=== PATIENT | female | born 1970 | race Caucasian/White ===

== ENCOUNTER → 2017-12-14 14:19 | Outpatient (CLI) | payer OTHER, SELFPAY ==
[2017-12-14 15:55] LABS: Free T3 2.1 pg/mL (2.18-3.98); T4 Free Direct 0.92 ng/dL (0.76-1.46); Thyroid Stim Hormone (TSH) 2.39 uIU/mL (0.358-3.74)
[2017-12-14 16:03] LABS: Homocysteine 8.5 umol/L (3.2-10.7)
[2017-12-23 20:08] LABS: Protein C Antigen 97 % (60-150); Protein C, Functional 114 % (73-180)
[2017-12-24 11:36] LABS: Anti-Cardiolipin Ab, IgG, Qn < 9 GPL U/mL (0-14); Anti-Cardiolipin Ab, IgM, Qn 10 MPL U/mL (0-12); Protein S, Free 132 % (57-157); Protein S, Funtional 94 % (63-140); Protein S, Total 75 % (60-150)
[2017-12-24 11:37] LABS: Anti-Cardiolipin Ab, IgA, Qn < 9 APL U/mL (0-11); Anti-Thrombin 3 AG, Immunol 101 % (72-124); Antithrombin 3 Function 111 % (75-135); Beta-2-Glycoprotein I IgA <9 (0-25); Beta-2-Glycoprotein I IgG <9 (0-20); Beta-2-Glycoprotein I IgM <9 (0-32)
== END ==
PROVIDERS: Family Provider Internal Medicine; PCP Internal Medicine; Visit Provider Internal Medicine
DX: I26.99 Other pulmonary embolism without acute cor pulmonale (principal); R94.6 Abnormal results of thyroid function studies
CPT/HCPCS: 36415; 81240; 81241; 81291; 83090; 84439; 84443; 84481; 85300; 85301; 85302; 85303; 85305; 85306; 86146; 86147

== ENCOUNTER 2017-12-29 10:47 | Day surgery (SDC) | payer OTHER, SELFPAY ==
[2017-12-24 13:10] LABS: Hematocrit 36.7 % (37-47); Hemoglobin 10.5 g/dl (12.0-15.0); Mean Corp Hgb Conc 28.6 g/gl (32-36); Mean Corpuscular Hgb 22.3 pg (27.0-32.0); Mean Corpuscular Volume 77.9 fL (81-99); Platelet Count 294 K/mm3 (150-450); RBC Distribution Width SD 42.8 fl (35.1-43.9); Red Blood Count 4.71 M/mm3 (4.2-5.4)
[2017-12-24 13:28] LABS: Scan Indicated on CBC? Y/N NO
[2017-12-24 13:35] LABS: Prothrombin Time (Protime)PT. 13.3 SECONDS (11.7-14.9)
[2017-12-29] VITALS (10 sets, daily range): BP systolic 91–127; BP diastolic 36–72; PULSE 56–88; RESP 14–18; TEMP 36.3–37; O2SAT 93–100; BMI 32.5
--- NOTE | 2017-12-29 12:30 | HYST_PTH ---
PATIENT: KARTHIKEYAN BECKFORD LOC: [facility] – [place] U#:[id number] AGE/SX: 47/F ROOM: RE12/29/[address]: Dr. Pati Chowdhury MD : [id number] BED: DIS: 12/30/2017 SPEC #: [id number] RECD: 12/29/17 15:29 STATUS: AGAPITO JESSICA #: [id number] TAMIE: 12/29/17 12:[address]: Pati Chowdhury DEPT: SURGICAL PATHOLOGY RECD BY: Jeramie Cotto ENTERED: 12/30/17 08:53 SP TYPE: HYSTERECT OTHR DR: Dr. Kaya Pinto, DO Tissues: Uterus, NOS Procedures: Surgery Specimen Level II Surgery Specimen Level V HEADER OPERATION: Hysterectomy, laparoscopic A & P repair, salpingectomy PRE-OP DIAGNOSIS: Cystocele, incomplete uterovaginal prolapse, rectocele, excessive bleeding in premenopausal period TISSUE SUBMITTED: Uterus, cervix, vaginal mucosa and bilateral fallopian tubes MICROSCOPIC DIAGNOSIS Uterus, hysterectomy: Cervix ? nabothian cysts, squamous metaplasia and mild chronic inflammation. Endometrium ? proliferative endometrium. Myometrium ? leiomyomas and adenomyosis. Right and left fallopian tubes ? benign paratubal cyst. Vaginal mucosa, anterior and posterior repair ? minimal chronic inflammation. No evidence of dysplasia. AM:darrick 12/31/17 MICROSCOPIC DESCRIPTION Slides are reviewed. GROSS DESCRIPTION Received in fixative is one container labeled with the patient's name and designated uterus, cervix, vaginal mucosa and bilateral fallopian tubes. The specimen consists of a hysterectomy specimen consisting of uterus with cervix, detached bilateral fallopian tubes and detached pieces of mucosal tissue and a separate Filshie clip which appears intact. The uterus with cervix weighs 151 gm. The endocervical canal measures 3.5 cm in length and endocervical mucosa is verdugo, glistening and unremarkable. The saucer-shaped endometrial cavity measures 5.5 cm in length and 3.5 cm in width. The endometrium is congested without any mass lesion and measures 0.1 cm in thickness. The endometrial cavity is partially distorted due to the presence of submucosal intramural mass. The endometrium measures 0.1 to 0.2 cm in thickness. Sections of the uterine wall reveal a submucosal intramural nodular mass measuring 4.5 cm in greatest dimension. The uterine wall measures 1.5 to 2.5 cm in thickness. A focal, solid, ill-defined is also noted close to serosal surface. The fallopian tubes are not identified as right or left. One of the fallopian tubes measure 5 cm in length and 0.5 cm in diameter. The fimbrial end is identified. A paratubal cyst is also noted measuring 1 cm in greatest dimension. Sections reveal unremarkable cut surfaces. The second fallopian tube measures 4.5 cm in length and 0.5 cm in diameter. The fimbrial end is identified. Also present in the container are two detached pieces of fallopian tube measuring 0.5 and 1 cm in length and 0.5 cm in diameter. These pieces are inked black. Also present in the container are two detached pieces of mucosal tissue measuring in aggregate 5 x 3 x 0.5 cm. No mucosal lesion is identified. S Iron Worker sections are submitted in 12 cassettes as follows: 1 - anterior cervix, 2 - posterior cervix, 3 & 4 - anterior uterine wall, 5 & 6 - posterior uterine wall, 7 & 8 ? submucosal nodular mass, 9 ? solid, ill-defined area in the uterine wall, 10 ? one fallopian tube including the detached proximal piece of one fallopian tube, 11 ? second fallopian tube and also contains the detached piece of proximal fallopian tube inked black, 12 ? mucosal tissue. / JONA:darrick 12/30/17 TC:1 CPT: 85372, 96810
--- NOTE | 2017-12-29 12:30 | PCM.DC.VHY ---
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 Call your doctor if you observe: Fever of 101 or Higher, Inability to have a bowel movement, Using more than one pad per hour, Calf discomfort, Uncontrolled pain Change Dressing in (Days):: 14 Remove Dressing in (days):: 14 Cleanse incision/area with: Soap & Water, Keep Dressing Clean & Dry Additional Instructions: Take Tylenol 500 - 1000 mg by mouth every 8 hr as needed. Add Aleve two tab every 8 hr as needed for pain OxyIR 5-10 mg by mouth every 6 hr as needed for more severe pain. Allergies/Adverse Reactions: Allergies bee venom protein (honey bee) Allergy (Verified 12/23/17 12:02) Anaphylaxis morphine Adverse Reaction (Verified 12/23/17 12:02) Vomiting Medications to take at Discharge Viibryd 20 mg PO DAILY 05/08/16 Epinephrine [Epi Pen] 0.3 mg IM X1 12/23/17 Lorazepam [Ativan] 0.5 mg PO QHS PRN PRN 12/23/17 Rabeprazole Sodium [Aciphex] 20 mg PO DAILY 12/23/17 Docusate Sodium [Colace] 100 mg PO BID #30 cap 12/29/17 Naproxen [Naprosyn] 250 - 500 mg PO TID PRN #30 tab 12/29/17 Oxycodone [Oxyir] 5 - 10 mg PO Q6H PRN PRN 7 Days #28 tablet 12/29/17 The following prescriptions were given: Oxycodone [Oxyir] 5 - 10 mg PO Q6H PRN PRN 7 Days #28 tablet PRN Reason: Mod-Severe Pain (4-08/03) Docusate Sodium [Colace] 100 mg PO BID #30 cap Naproxen [Naprosyn] 250 - 500 mg PO TID PRN #30 tab PRN Reason: Mild-Mod Pain (1-5/10) Primary Care Physician: Kaya Pinto DO [Primary Care Provider] - Please Follow Up With: Pati Chowdhury MD - [phone] When: 2 weeks for postop incision check Proposed Discharge Date: 12/30/17
--- NOTE | 2017-12-29 12:38 | DCINST_ITS ---
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 Call your doctor if you observe: Fever of 101 or Higher, Inability to have a bowel movement, Using more than one pad per hour, Calf discomfort, Uncontrolled pain Change Dressing in (Days):: 14 Remove Dressing in (days):: 14 Cleanse incision/area with: Soap & Water, Keep Dressing Clean & Dry Additional Instructions: Take Tylenol 500 - 1000 mg by mouth every 8 hr as needed. Add Aleve two tab every 8 hr as needed for pain OxyIR 5-10 mg by mouth every 6 hr as needed for more severe pain. Allergies/Adverse Reactions: Allergies bee venom protein (honey bee) Allergy (Verified 12/23/17 12:02) Anaphylaxis morphine Adverse Reaction (Verified 12/23/17 12:02) Vomiting Medications to take at Discharge Viibryd 20 mg PO DAILY 05/08/16 Epinephrine [Epi Pen] 0.3 mg IM X1 12/23/17 Lorazepam [Ativan] 0.5 mg PO QHS PRN PRN 12/23/17 Rabeprazole Sodium [Aciphex] 20 mg PO DAILY 12/23/17 Docusate Sodium [Colace] 100 mg PO BID #30 cap 12/29/17 Naproxen [Naprosyn] 250 - 500 mg PO TID PRN #30 tab 12/29/17 Oxycodone [Oxyir] 5 - 10 mg PO Q6H PRN PRN 7 Days #28 tablet 12/29/17 The following prescriptions were given: Oxycodone [Oxyir] 5 - 10 mg PO Q6H PRN PRN 7 Days #28 tablet PRN Reason: Mod-Severe Pain (4-08/03) Docusate Sodium [Colace] 100 mg PO BID #30 cap Naproxen [Naprosyn] 250 - 500 mg PO TID PRN #30 tab PRN Reason: Mild-Mod Pain (1-5/10) Primary Care Physician: Kaya Pinto DO [Primary Care Provider] - Please Follow Up With: Pati Chowdhury MD - [phone] When: 2 weeks for postop incision check Proposed Discharge Date: 12/30/17
[2017-12-29] MEDS: Bupiv/Epi 0.5% Mpf 30 ML Vial (13:00)
[2017-12-29] MEDS: Lactated Ringers 1,000 ML 125 ML IV (16:11)
--- NOTE | 2017-12-29 18:31 | PCM.OP.BLANK ---
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 Bilateral salpingectomy Anterior and posterior repair Enterocele sac ligation Preoperative diagnosis: Symptomatic , incomplete uterovaginal prolapse Grade I uterine prolapse Moderate rectocele Mild cystocele Postop diagnosis: Symptomatic , incomplete uterovaginal prolapse Grade I uterine prolapse Moderate rectocele Enterocele Mild cystocele Uterine fibroids. Anesthesia: General Vinod Barajas MD Surgeon: Pati Chowdhury MD Subassembly Supervisor: LYNNETTE Burnette RNFA EBL [id number] cc Complications: none Drains: Rossi draining clear yellow urine Fluids: replacement LR Findings: On exam under anesthesia, the cervix has mild prolapse and is parous appearing. At Laparoscopy: the uterus is mildly enlarged and several serosal fibroids are noted. Prior bilateral partial salpingectomy, Filshie clips. There are no significant adhesions in the pelvis . There are normal appearing fallopian tubes and ovaries bilaterally. PATH: Uterus, bilateral fallopian tubes Strips of vaginal mucosa. Narrative account: After the risks, benefits and alternatives of the procedure were reviewed with the patient , informed consent was obtained. The patient was taken to the Operative room with an IV running . She was positioned in the dorsal supine position on the operating table and given general anesthesia. Once asleep she was positioned to the dorsal lithotomy position with the arms tucked at the sides and prepped and draped in the usual sterile fashion. A Rossi catheter was inserted to drain the bladder and left open to drain in the drape. The weighted speculum was placed into the vagina and a single tooth tenaculum was placed at the cervix. A Dustin cannula was inserted into the cervix and secured into placed with the single - toothed tenaculum. Attention was then turned to the anterior abdominal wall. the bridge operator slip's gloved were changed and skin incisions were created at the infraumbilical and suprapubic skin and at a point approximately nursing home between the suprapubic and infraumbilical skin incisions. Local anesthesia was used to infiltrate the skin where the trocar incision sites were created. A transverse 5 mm infraumbilical skin incision , a transverse 5 mm suprapubic incision and an transverse 5 mm midline incision were created. A Veress needle was inserted in to the peritoneal cavity at the infraumbilical skin incision while maintaining upward traction of the anterior abdominal wall at the umbilicus. There was free drop of saline, free flow of CO2 and low opening pressure noted. Once the intraabdominal pressure had reached approximately 15 mm HG, the Veress needle was removed and a bladeless 5 mm trocar was inserted into the peritoneal cavity. Correct placement was confirmed using the laparoscope. Under direct visualization the other two 5 mm bladeless trocars were inserted into the peritoneal cavity. The fallopian tubes were retracted medially and using a LigaSure device the fallopian tube was divided from the ovary and the mesosalpinx, leaving the fallopian tube free at each side of the uterus other than the attachment to the uterus. The uteroovarian pedicles were then divided using a [place] LigaSure device. The broad ligament was then divided down to the level of the round ligament on both sides. At this point the laparoscopic portion of the case was completed. The trocars were left in place, but the instruments were removed and gas turned off. A sterile drape was used to cover the abdomen. Attention was then turned to the vaginal portion of the case. The Dustin cannula was removed and the single toothed tenaculum repositioned on the cervix. The cervical mucosal was then incised circumferentially using Bovie cautery and a knife. The posterior cul de sac was entered by sharp dissection with Pizano scissors and a weighted speculum was placed into the posterior cul se sac. Dissection then was initiated at the anterior cervix to enter the anterior cul se sac. The uterosacral ligaments were clamped bilaterally with curved Christ clamps and the pedicles divided and suture ligated and tagged for later identification. Next the cardinal ligament was clamped bilaterally and divided and suture ligated. Adequate hemostasis was noted. The anterior cul de sac peritoneum was then entered by sharp dissection and a narrow Ashish retractor was placed into the anterior cul de sac to retract the bladder out of harm's way for the remainder of the case. The uterine arteries were clamped bilaterally , divided and suture ligated. Dissection then continued along each side of the uterus. Each pedicle was secured with a Christ clamp, divided and suture ligated until ultimately the uterine fundus was reached. The superior pedicles on each side were secured with a curved Christ clamp and the uterus and attached fallopian tubes were surgically amputated and set aside. The superior pedicle was then suture ligated, then free tied and tagged for identification. The superior pedicles were dry. There was bleeding noted along the posterior vaginal cuff and along the anterior vaginal cuff . The peritoneum was then closed with a running purse string suture of 1 Vicryl, incorporating the superior pedicles and uterosacral ligament tags. There was bleeding noted at the R uterine angle and this area was oversewn with a figure of eight stitch of 1 Vicryl. Attention was then turned to the anterior repair. Allis clamps were used to grasp the anterior vaginal mucosa and the vaginal mucosa was dissected from from the underlying pubovesical cervical fascia from the vaginal cuff to a point approximately 1-2 cm away from the urethra. Estela plication stitches of 1Vicryl were placed, reducing the small cystocele. The anterior vaginal mucosa was trimmed and the anterior vaginal incision was then repaired with interrupted stitches of 2-0 chromic. The posterior vaginal cuff was then reapproximated with the posterior cul de sac peritoneum in a running locked fashion with 1 Vicryl for hemostasis. The vaginal cuff was then reapproximated with interrupted and fig of eight stitches of 1-0 Vicryl . Excellent hemostasis was noted. Attention was then turned to the posterior repair A triangular piece of tissue was excised at the posterior vagina / perineal body and the posterior vaginal longitudinal incision was then created using Metzenbaum scissors. The linear incision was carried from the posterior introitus to approx 2-3 cm proximal to the vaginal cuff repair. The vaginal epithelium was then dissected from the underlying rectovaginal septum. An enterocele sac was encountered and was reduced with a purse string suture of 1-0 Vicryl. Estela plication stitches of 1-0 Vicryl were then placed reducing the rectocele. The posterior vaginal mucosa was trimmed and the linear incision closed with 2-0 chromic in a running locked fashion. Additional stitches of 1-0 Vicryl were placed for hemostasis along the repair. vaginal packing was then inserted: 1 plain gauze Excellent hemostasis was noted. The Rossi was attached to the Rossi bag and clear yellow urine returned. A second look was performed with the laparoscope: excellent hemostasis was noted at all pedicles and at the vaginal cuff. Sania was sprayed along the cuff and pedicles for additional hemostasis. The pneumoperitoneum was reduced and all instruments and trocars were removed. The skin incisions were closed with 4-0 Monocryl in a subcuticular fashion. Sterile dressings were applied. The patient was returned to dorsal supine position and awakened from general anesthesia. She was then transferred to the recovery room bed in stable condition after tolerating the procedure well. Sponge, lap, needle and instrument counts correct times two. Medications given preop and intraoperatively included: Cefotetan IV was given production staff worker to the operating room , Marcaine with epinephrine was used as a subcutaneous injection at the trocar skin incision sites, and Toradol 30 mg IV x one was given. For a complete listing of medications given preop and intraoperatively, please see the anesthesia record.
[2017-12-29] MEDS: Ondansetron 4 MG/2 ML Vial IV (21:29)
[2017-12-29] MEDS: Ketorolac 30 MG/ML Syringe IV (21:39)
[2017-12-30] MEDS: Lactated Ringers 1,000 ML 125 ML IV (01:39)
[2017-12-30] MEDS: Ketorolac 30 MG/ML Syringe IV ×2 (01:41→10:23)
[2017-12-30 02:30] VITALS: BP 99/56; PULSE 97; RESP 16; TEMP 36.7; O2SAT 94
[2017-12-30 06:08] LABS: Hematocrit 26.9 % (37-47); Hemoglobin 7.8 g/dl (12.0-15.0); Mean Corpuscular Hgb 22.5 pg (27.0-32.0); Mean Corpuscular Volume 77.7 fL (81-99); Mean Platelet Vol. 10.6 fl (6.2-12.0); Platelet Count 198 K/mm3 (150-450); RBC Distribution Width CV 15.3 % (11.6-14.6); RBC Distribution Width SD 43.3 fl (35.1-43.9); Red Blood Count 3.46 M/mm3 (4.2-5.4); White Blood Count 12.8 K/mm3 (4.4-11.0)
[2017-12-30] MEDS: Acetaminophen 500 MG Tablet PO (06:24)
[2017-12-30 06:25] LABS: Scan Indicated on CBC? Y/N NO
[2017-12-30 07:30] VITALS: O2SAT 95
--- NOTE | 2017-12-30 09:04 | PCM.PROGNOTE ---
Subjective: POD#1 LAVH, bilateral salpingectomy. A and P repair. Enterocele ligation. Doing OK. Some nausea overnight. Hernnadez out but not up to void yet. Using K pad to help with cramping. No concerns voiced. States she is a very rare, occasional, casual smoker (smokes with coffee, friends) and last cigarette months ago but does relate she has had problems with her lungs...many infections. Objective: Lying in bed, NAD - Physical Exam General: Alert, Oriented x3, Cooperative, No apparent distress HEENT: Atraumatic Neck: Supple Abdomen: Soft, Non Tender Skin: Incision - L/S incisions CDI. Vaginal packing removed, old dk blood . Minimal bld on peripad Neurological: Cranial nerves II-XII grossly intact Psych/Mental Status: Normal Affect Vital Signs Temp Pulse Resp BP Pulse Ox 98.1 F 97 16 99/56 L 95 /06/11 02:30 /06/11 02:30 12/30/17 02:30 12/30/17 02:30 12/30/17 07:30 Oxygen Flow Rate (L/min) 2 Oxygen Delivery Method Room Air Weight: 88.7 kg Body Mass Index (BMI) 32.5 Intake and Output for Last 24 Hours 03/06/18 //18 /06/11 23:59 23:59 23:59 Intake Total 2112 / 2112 Output Total 40 / 40 460 / 460 Balance 2072 / 2072 1513 / 1513 Laboratory Tests Past 24 Hrs //18 05:42 WBC 12.8 H RBC 3.46 L Hgb 7.8 L Hct 26.9 L MCV 77.7 L MCH 22.5 L MCHC 29.0 L RDW 15.3 H RDW Differential 43.3 Plt Count 198 MPV 10.6 Assessment/Plan POD#1 LAVH Bilateral salpingectomy, A and P repair, Enterocele sac ligation Stable postop. D/C hernandez for voiding trial. Inc diet and acivity as tolerated. May shower. Pakcing out, watch bleeding Iron deficiency anemia prior to surgery, and with superimposted acute blood loss anemia after surgery -- repeat CBC at 1100 -- ferrous sulfate bid Mild leukocytosis -- likely reactive -- repeat CBC 1100 D/C home later today if clinically stable. Continue iron for one mo after surgery planned. RTO in 2 wk for postop incision check.
[2017-12-30] MEDS: Docusate Sodium 100 MG Capsule PO (10:30)
[2017-12-30] MEDS: Pantoprazole Sodium 20 MG Tablet PO (10:32)
[2017-12-30] MEDS: VILAZODONE HYDROCHLORIDE 20 MG TABLET PO (10:32)
[2017-12-30] MEDS: Ferrous Gluconate 325 MG Tablet PO (10:32)
[2017-12-30 10:42] VITALS: BP 101/50; PULSE 86; RESP 20; TEMP 36.9; O2SAT 98
[2017-12-30 10:47] LABS: Hematocrit 30.5 % (37-47); Hemoglobin 8.8 g/dl (12.0-15.0); Mean Corp Hgb Conc 28.9 g/gl (32-36); Mean Corpuscular Hgb 22.4 pg (27.0-32.0); Mean Corpuscular Volume 77.8 fL (81-99); Mean Platelet Vol. 10.1 fl (6.2-12.0); Platelet Count 226 K/mm3 (150-450); RBC Distribution Width CV 15.4 % (11.6-14.6); Red Blood Count 3.92 M/mm3 (4.2-5.4); Scan Indicated on CBC? Y/N NO; White Blood Count 12.7 K/mm3 (4.4-11.0)
[2017-12-30 13:36] VITALS: BP 97/57; PULSE 84; RESP 18; TEMP 36.7; O2SAT 97
== END 2017-12-30 13:55 | disposition home or self-care (01) ==
LOC: SDC 10:48 → AC 10:48 → MS3 14:30
PROVIDERS: Family Provider Internal Medicine; PCP Internal Medicine; Visit Provider Obstetrics & Gynecology
PROC: 0UT90ZZ Resection of Uterus, Open Approach (ICD-10-PCS; CPT 58150; principal; 2017-12-29 12:10)
DX: N81.2 Incomplete uterovaginal prolapse (principal); D25.9 Leiomyoma of uterus, unspecified; N92.4 Excessive bleeding in the premenopausal period; N88.8 Other specified noninflammatory disorders of cervix uteri; N72 Inflammatory disease of cervix uteri; N87.9 Dysplasia of cervix uteri, unspecified; N80.0 Endometriosis of uterus; N83.8 Other noninflammatory disorders of ovary, fallopian tube and broad ligament; N76.1 Subacute and chronic vaginitis; D50.9 Iron deficiency anemia, unspecified; D62 Acute posthemorrhagic anemia; D72.829 Elevated white blood cell count, unspecified; K21.9 Gastro-esophageal reflux disease without esophagitis; F32.9 Major depressive disorder, single episode, unspecified; F41.9 Anxiety disorder, unspecified; E03.9 Hypothyroidism, unspecified; F17.200 Nicotine dependence, unspecified, uncomplicated; Z86.711 Personal history of pulmonary embolism; Z98.51 Tubal ligation status
CPT/HCPCS: 58552; 36415; 85027; 85610; 85730; 86850; 86900; 88302; 88307; J3010; J7040; J7120; J2405

== ENCOUNTER → 2018-01-14 14:01 | Outpatient (CLI) | payer OTHER, SELFPAY ==
[2018-01-14 17:16] LABS: Mean Corp Hgb Conc 28.6 g/gl (32-36); Mean Corpuscular Hgb 22.4 pg (27.0-32.0); Mean Corpuscular Volume 78.5 fL (81-99); Mean Platelet Vol. 10.8 fl (6.2-12.0); Platelet Count 366 K/mm3 (150-450); RBC Distribution Width CV 16.4 % (11.6-14.6); RBC Distribution Width SD 45.8 fl (35.1-43.9); Red Blood Count 4.46 M/mm3 (4.2-5.4); White Blood Count 7.6 K/mm3 (4.4-11.0)
[2018-01-14 17:19] LABS: Scan Indicated on CBC? Y/N NO
== END ==
PROVIDERS: Visit Provider Obstetrics & Gynecology
DX: D64.9 Anemia, unspecified (principal)
CPT/HCPCS: 36415; 85027

== ENCOUNTER → 2018-03-22 16:05 | Outpatient (CLI) | payer OTHER, SELFPAY ==
[2018-03-22 17:34] LABS: D-Dimer Quantitative (DVT/PE) 0.94 FEU/ug/m (0.27-0.49)
== END ==
PROVIDERS: Family Provider Internal Medicine; PCP Internal Medicine; Visit Provider Nurse Practitioner Gerontology
DX: R06.02 Shortness of breath (principal)
CPT/HCPCS: 36415; 85379

== ENCOUNTER → 2018-03-23 11:13 | Outpatient (CLI) | payer OTHER, SELFPAY ==
--- NOTE | 2018-03-23 11:18 | CT_ITS ---
STUDY: CTA CHEST REASON FOR EXAM: Female, 47 years old. Elevated d-dimer. RADIATION DOSAGE (If Supplied By Facility): CTDIvol = ( 13.83 ) mGy, DLP = ( 469.00 ) mGycm TECHNIQUE: The examination was performed with the intravenous administration of 100 ml of Isovue 370 contrast material. Post-processing of the angiographic images was performed, with multiplanar reformation. Individualized dose optimization techniques were used for this CT. COMPARISON: CT of the chest, May 08, 2016. FINDINGS: Normal enhancement of the main pulmonary artery and right and left pulmonary arteries. Normal enhancement of the bilateral peripheral pulmonary arteries. There is no demonstrated pulmonary embolism. Normal thoracic aorta and visualized great vessels. There is no demonstrated aortic dissection. Normal heart and pericardium. Normal mediastinum. Normal hilar regions. Normal visualized trachea and bronchi. The lungs are well expanded. Normal pulmonary parenchyma. Normal pleura. Normal chest wall structures. Normal osseous structures. Question small type I hiatal hernia. The remainder of the visualized abdomen is unremarkable. CT/CTA Chest W/WO Contrast IMPRESSION: Normal CTA chest examination, without a demonstrated pulmonary embolism or arterial dissection. Electronically Signed: Brent Infante DO at 12:15 EDT Tel [phone], Service support ,
== END ==
PROVIDERS: Family Provider Internal Medicine; PCP Internal Medicine; Visit Provider Internal Medicine
DX: R79.89 Other specified abnormal findings of blood chemistry (principal)
CPT/HCPCS: 71275; Q9967

== ENCOUNTER → 2018-08-06 08:33 | Outpatient (CLI) | payer OTHER, SELFPAY ==
[2018-08-06 09:45] LABS: Cholesterol 199 mg/dL (200); Glucose 97 mg/dL (74-106); High Density Lipoprotein 60 mg/dL; Triglycerides 97 mg/dL; Very Low Density Lipoprotein 19 mg/dL (5-40)
== END ==
PROVIDERS: Family Provider Internal Medicine; PCP Internal Medicine; Referring Provider Internal Medicine; Visit Provider Internal Medicine
DX: Z13.220 Encounter for screening for lipoid disorders (principal); R53.83 Other fatigue
CPT/HCPCS: 36415; 80061; 82947

== ENCOUNTER → 2018-11-18 12:44 | Outpatient (CLI) | payer OTHER, SELFPAY ==
--- NOTE | 2018-11-18 12:55 | MRI_ITS ---
STUDY: MRI LEFT SHOULDER REASON FOR EXAM: Pain for 10 months, left shoulder impingement. TECHNIQUE: Standardized fat and water weighted pulse sequences were obtained in all 3 orthogonal planes. COMPARISON: None. FINDINGS: There is mild supraspinatus tendinosis and a very small low-grade partial-thickness tear of the articular surface of the supraspinatus tendon (T2 coronal image 12) measuring 0.2 cm in length. Normal infraspinatus tendon. Normal subscapularis tendon. Normal teres minor tendon. Normal supraspinatus muscle. Normal infraspinatus muscle. Normal subscapularis muscle. Normal teres minor muscle. Normal glenohumeral articulation. There is mild cystic change of the posterior aspect of the greater tuberosity. There is a possible small SLAP lesion (T2 coronal images 9-11). Normal intracapsular long biceps tendon. Normal capsulo- ligamentous complex. Normal acromioclavicular articulation. There is a Type II morphology (curved), with a neutral orientation. There is no subacromial-subdeltoid bursal fluid. Normal visualized coracohumeral and coracoacromial ligaments. Normal deltoid muscle. Normal trapezius muscle. MRI/Upper Ext Joint Only(Routine) IMPRESSION: Very small low-grade partial-thickness tear and mild tendinosis of the supraspinatus tendon. Possible small SLAP lesion. Electronically Signed: Rangel Cid MD at 13:51 EST Tel , Service support ,
== END ==
PROVIDERS: Family Provider Internal Medicine; PCP Internal Medicine; Referring Provider Physician Assistant; Visit Provider Physician Assistant
DX: M75.42 Impingement syndrome of left shoulder (principal)
CPT/HCPCS: 73221

== ENCOUNTER → 2019-06-02 11:15 | Outpatient (CLI) | payer OTHER, SELFPAY ==
[2019-06-03 16:07] LABS: CHOLESTEROL TOTAL 228 mg/dL (100-199); HDL-C 62 mg/dL (>39); HDL-P TOTAL 38.9 umol/L (>=30.5); SMALL LDL-P 588 nmol/L (<=527); TRIGLYCERIDES 84 mg/dL (0-149)
[2019-06-04 07:43] LABS: INSULIN RESISTANCE SCORE 37 (<=45); LDL SIZE 21.2 nm (>20.5); LDL-C 149 mg/dL (0-99); LDL-P 1699 nmol/L (<1000)
== END ==
PROVIDERS: Family Provider Internal Medicine; PCP Internal Medicine; Referring Provider Internal Medicine; Visit Provider Internal Medicine
DX: Z13.220 Encounter for screening for lipoid disorders (principal); R11.0 Nausea
CPT/HCPCS: 36415; 80061; 83704

== ENCOUNTER 2019-06-14 11:00 | Outpatient (RCR) | payer OTHER, SELFPAY ==
--- NOTE | 2019-04-11 15:33 | HP.PTEVAL ---
Patient's Visit Information KARTHIKEYAN BECKFORD is a 48 year old F referred to Physical Therapy by Shay Cross MD with a diagnosis of L shoulder impingement s/p bi tenotomy and clean out artrosopic. Date of Evaluation: 04/11/19 Physical Therapist: Vinod Laird, DPT, OCS, CSCS - Visit Plan Frequency: 2x /Week Duration: 3 Months Plan: 1-2x/week for 6-8 weeks. Start phase 1 adn progress slowly to phase 2 ROM exercises and activtiy modifications to keep pain low. Ice as needed. Isometrics as able. Phase 3 after visits doctor mid April if doing well. - Subjective Findings: Surgery on L shoulder biceps tenotomy and clean out. Cleaned out March 30. Feels pretty good. In sling and out for short periods during the day. Acheing lately 4/10, comfortable at rest. Not sure what the orginal injury was but it hurt for 1.5 years of pain and stiffness. Sleep is OK but avoids L side. Precautions are in sling and out for short periods. No lifting heavier than a cup. Back in one month. 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 Off for 12 weeks. Dress , bathe and shower are OK just slow. Avoids cooking adn cleaning at this point. Hobbies include travellign adn reading and walking. Can still read and walks a little bit. - Pain L shoulder Pain Intensity (Out of 10): 0 Pain Intensity Range: 0, 6 - Objective L arm in sling and donned and doffed I. c/s AROM WNL and I. wrist and elbow aROM B WNL. Scapular ROM is fulla nd painfree. R shoulder aROM WNL elevation 160 and 80 ext rot adn L4 IR. L shoulder 125 flexion, 40 ext rotation adn 30 IR at 90 abd. Incisions have healed well and no drainage. Minor scar tissue under 3 arthroscopic. - Goals Goal 1:: Full aROM without pain Goal Time Frame: 6-8 Weeks Goal 2:: Patient able to sleep on L side without interruption Goal Time Frame: 6-8 Weeks Goal 3:: Pt I approp HEp to minimize future problems Goal Time Frame: 6-8 Weeks Goal 4:: Pt ready to return to work without limitations Goal Time Frame: 8-12 Weeks - Rehabilitation Potential Physical Therapy Diagnosis: L shoulde rimpingement s/p suregery. Rehabilitation Potential: Good - Anticipated Interventions Patient/Client Instruction: Educate patient on: Condition, Plan of Care For the Purpose of:: To decrease pain, To increase ROM, To improve muscle performance and motor function, To improve ability of physical actions for home/community/work/leisure Therapeutic Exercise to Include: Strength training, Flexibilty training, Passive ROM, Active ROM, Scapular Strength/Stabilization For the Purpose of:: To decrease pain, To increase ROM, To improve nutrient delivery to tissue, To improve muscle performance and motor function, To improve ability of physical actions for home/community/work/leisure Manual Therapy Techniques to Include: Passive ROM For the Purpose of:: To increase ROM Cryotherapy (ice pack, ice massage): Yes For the Purpose of:: To decrease swelling/inflammation Thank you for the opportunity to evaluate your patient. For Medicare and Medicare HMO plans, please review the plan of care and approve it. It will need to be FAXED BACK to us at [phone] for Medicare purposes. For Medicare only, by signing this I certify the plan of care. Please let me know if there are questions or concerns regarding this plan of care. Physician Signature: Date:
--- NOTE | 2019-05-11 10:51 | HP.PTREVAL_ITS ---
Shay Cross MD, It has been my pleasure to treat KARTHIKEYAN BECKFORD over the last 9 visits for L shoulder impingement s/p bi tenotomy and clean out artrosopic. Please see the progress note below for an update on the physical therapy plan of care! Subjective: Doctor said everything looked good. Pain 1-2/10 achiness 80% of time. Sleep is OK. HEP: pendulum and elbow ROM, stick supine flexiona nd er. Backk to doctor in 4 weeks. No precautions other than care with elbow flexion. Objective/Function: 140 flexion. 110 Abduction. 38 ext rotation(82 R). 50 degrees ext rotation and 150 flexion after stretches. Plan Plan: weekly to progress HEP to isometrics adn triceps and biceps Goals Goal 1:: Full aROM without pain Goal Time Frame: 6-8 Weeks Goal Progress: Progressing Goal 2:: Patient able to sleep on L side without interruption Goal Time Frame: 6-8 Weeks Goal Progress: Progressing Goal 3:: Pt I approp HEp to minimize future problems Goal Time Frame: 6-8 Weeks Goal Progress: Progressing Goal 4:: Pt ready to return to work without limitations Goal Time Frame: 8-12 Weeks Anticipated Interventions Patient/Client Instruction: Educate patient on: Condition, Plan of Care For the Purpose of:: To decrease pain, To increase ROM, To improve muscle performance and motor function, To improve ability of physical actions for home/community/work/leisure Therapeutic Exercise to Include: Strength training, Flexibilty training, Passive ROM, Active ROM, Scapular Strength/Stabilization For the Purpose of:: To decrease pain, To increase ROM, To improve nutrient delivery to tissue, To improve muscle performance and motor function, To improve ability of physical actions for home/community/work/leisure Manual Therapy Techniques to Include: Passive ROM For the Purpose of:: To increase ROM Cryotherapy (ice pack, ice massage): Yes For the Purpose of:: To decrease swelling/inflammation Please do not hesitate to contact me at [phone] by phone or Fax: if you have questions or concerns regarding this new plan of care! Sincerely, Vinod Laird, DPT, OCS, CSCS
--- NOTE | 2019-07-13 12:27 | HP.PTDCNRP_ITS ---
HP - Discharge Summary (1) - Patient Information KARTHIKEYAN BECKFORD was seen in my office for initial evaluation on 04/11/19. The following Plan of Care was established for this patient: Initial Frequency: 2x /Week Initial Duration: 3 Months - Anticipated Interventions Patient/Client Instruction: Educate patient on: Condition, Plan of Care For the Purpose of:: To decrease pain, To increase ROM, To improve muscle per formance and motor function, To improve ability of physical actions for home/community/work/leisure Therapeutic Exercise to Include: Strength training, Flexibilty training, Passive ROM, Active ROM, Scapular Strength/Stabilization For the Purpose of:: To decrease pain, To increase ROM, To improve nutrient delivery to tissue, To improve muscle performance and motor function, To improve ability of physical actions for home/community/work/leisure Manual Therapy Techniques to Include: Passive ROM For the Purpose of:: To increase ROM Cryotherapy (ice pack, ice massage): Yes For the Purpose of:: To decrease swelling/inflammation This patient was last seen in our office 06/14/19. Pertinent comments regarding their Physical therapy will appear below: Pt seen for 12 visits of POC. Doing very well. She was to f/u in mid june but mayte cancelled stating she is doing well and does not need to return. At this point I will be discontinuing this patient from physical therapy. I would be happy to see this patient again in the future if found appropriate by the physician. Thank you! Vinod Laird, DPT, OCS, CSCS
== END 2019-06-14 19:00 | disposition home or self-care (01) ==
LOC: PT 11:00
PROVIDERS: Family Provider Internal Medicine; PCP Internal Medicine; Referring Provider Orthopaedic Surgery; Visit Provider Orthopaedic Surgery
DX: M75.42 Impingement syndrome of left shoulder (principal)
CPT/HCPCS: 97110; 97140; 97161; 97530

== ENCOUNTER 2019-10-02 12:36 | Emergency (ER) | payer OTHER, SELFPAY ==
[2019-10-02 12:37] VITALS: BP 161/101; PULSE 86; RESP 15; TEMP 36.6; O2SAT 97; BMI 32.4
--- NOTE | 2019-10-02 13:25 | ED.VISSUMM ---
- ER Visit Summary Date of Service: 10/02/19 Chief Complaint: Back pain. 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 She denies any weakness or numbness to her lower extremities. She is never had back surgery. She is never had an MRI. She denies any bowel or bladder incontinence. No fever. She is on no blood thinners. He states she feels actually pretty well when she is sitting when she goes to move or stand up is when she notices the pain. Physical Examination: Middle-aged female no acute distress vital signs are stable afebrile. HEENT exam unremarkable. Neck nontender. Lungs clear to auscultation bilaterally. Heart regular rhythm no murmur. Abdomen is soft and nontender. Normal bowel sounds no peritoneal signs. Patient is moving all 4 extremities. There are neurovascular intact. Dorsi and plantar flexion are intact. No cauda equina. No saddle anesthesia. Back is tender over the lumbar spine. There is no ecchymosis or bruising. No paraspinal soft tissue tenderness. Neurologically her exam is normal. She has no focal motor or sensory deficits. She is a negative straight leg raise bilaterally. Test Results: None Emergency Department Course and Treatment: Patient does not need any imaging today. She has normal motor strength and sensation in her lower extremities. She had no fall or significant trauma she does not need any plain x-rays nor MRI. She knows that this continues she may need an MRI. Treatment Plan: Motrin for pain 800 3 times daily. Ice to the area. Follow-up if not improving. Disposition: Discharge Impression: Low back pain and strain Worker's Comp. injury This note was generated with [employer] dictation software. It may contain incorrect words, spelling, and punctuation that were not noted in review of the chart prior to signing ED Disposition - Plan for ED Patient: Referrals: Kaya Pinto DO [Primary Care Provider] -
--- NOTE | 2019-10-02 13:27 | ED.DEP ---
ED Disposition - Plan for ED Patient: Disposition: Home or Assisted Living Instructions: Back Sprain/Strain Prescriptions: Ibuprofen [Motrin] 800 mg PO Q8H PRN PRN #20 tab PRN Reason: Pain Or Fever Prescription Printed Ibuprofen [Motrin] 800 mg PO TID #20 tab Prescription Printed Referrals: Kaya Pinto DO [Primary Care Provider] - 1 Week if not improving Additional Instructions: Trend for pain and inflammation up to 3 times a day with food on the stomach. Not improving in a week follow-up with primary care physician. You may need an MRI if this is not getting better. This could be an underlying disc other etiology to your lower back but at this time you have no numbness or weakness to your lower extremities.
[2019-10-02 13:53] VITALS: PULSE 82; RESP 14; O2SAT 98
== END 2019-10-02 13:53 | disposition home or self-care (01) ==
PROVIDERS: Emergency Provider Emergency Medicine; Family Provider Internal Medicine; PCP Internal Medicine
DX: S39.012A Strain of muscle, fascia and tendon of lower back, initial encounter (principal); X58.XXXA Exposure to other specified factors, initial encounter; Y93.89 Activity, other specified; Y92.009 Unspecified place in unspecified non-institutional (private) residence as the place of occurrence of the external cause; Y99.0 Civilian activity done for income or pay
CPT/HCPCS: 99282

== ENCOUNTER → 2019-10-24 06:38 | Outpatient (CLI) | payer OTHER, SELFPAY ==
[2019-10-02 12:37] VITALS: BMI 32.4
--- NOTE | 2019-10-24 06:44 | MRI_ITS ---
STUDY: MRI RIGHT SHOULDER REASON FOR EXAM: Female, 48 years old. Rotator cuff tear right shoulder, positional pain TECHNIQUE: Standardized fat and water weighted pulse sequences were obtained in all 3 orthogonal planes. COMPARISON: None. FINDINGS: Tendinosis of the supraspinatus with partial bursal and humeral surface distal tendon tear, series 6 image 06/13. Normal infraspinatus tendon. Normal subscapularis tendon. Normal teres minor tendon. Normal supraspinatus muscle. Normal infraspinatus muscle. Normal subscapularis muscle. Normal teres minor muscle. There is a small volume joint effusion of the glenohumeral joint. There is a cortical erosion at the insertion of the infraspinatus tendon. Normal biceps labral complex. Normal intracapsular long biceps tendon. Tear of the superior labrum extending to the anterior labrum, series 3 images 06/15 through 10/15. Normal capsulo- ligamentous complex. Normal rotator interval. Normal acromioclavicular articulation. There is a Type I morphology (flat undersurface) acromion, with a neutral orientation. There is no subacromial-subdeltoid bursal fluid. Normal visualized coracohumeral and coracoacromial ligaments. Normal quadrilateral space. Normal axillary space. Normal deltoid muscle. Normal trapezius muscle. MRI/Upper Ext Joint Only(Routine) IMPRESSION: Tendinosis with high-grade rotator cuff tear of the supraspinatus. Tears of the superior and anterior labrum. Electronically Signed: Mike Ho MD at 10:36 EST , Service support ,
== END ==
PROVIDERS: Family Provider Internal Medicine; PCP Internal Medicine; Referring Provider Orthopaedic Surgery; Visit Provider Orthopaedic Surgery
DX: M75.121 Complete rotator cuff tear or rupture of right shoulder, not specified as traumatic (principal)
CPT/HCPCS: 73221

== ENCOUNTER 2019-10-31 20:02 | Observation (INO) | payer OTHER, SELFPAY ==
[2019-10-31 20:02] VITALS: BP 131/89; PULSE 63; RESP 16; TEMP 35.9; O2SAT 100; BMI 32.4
--- NOTE | 2019-10-31 20:32 | CT_ITS ---
STUDY: CT BRAIN WITHOUT CONTRAST REASON FOR EXAM: Female, 48 years old. Headache. Vomiting. RADIATION DOSAGE (If Supplied By Facility): CTDIvol = ( 44.99 ) mGy, DLP = ( 796.11 ) mGycm TECHNIQUE: Transaxial CT imaging of the brain was performed without administration of intravenous contrast material. Individualized dose optimization techniques were used for this CT. COMPARISON: None. FINDINGS: There is no acute bleed or infarct. There are normal white matter tracts. The ventricles are normal in configuration. There is no hydrocephalus. There is a small amount of fluid in the maxillary sinuses. The visualized paranasal sinuses are otherwise clear. The mastoid air cells are well aerated. There is no skull fracture. CT/Brain/Head without Contrast IMPRESSION: No acute intracranial abnormality. Small amount of fluid in the maxillary sinuses. Electronically Signed: Stefano Mullins, at 20:58 EST Tel , Service support ,
--- NOTE | 2019-10-31 20:33 | ED.DCSUM_ITS ---
History of Present Illness Chief Complaint: Headache Informant: Patient Onset: Today Context: Sudden Timing: Continuous Location: Vertex Current Severity: Severe Maximum Severity: Severe Worsened by: Started after vomiting and has vomited a total of 6 times Relieved by: Nothing Associated Symptoms: Nausea, Vomiting. Negative for: Fever, Sore Throat, Sinus Pressure, Numbness, Tingling, Preceding Aura, Visual Changes, Blurred Vision, Photophobia Narrative: Patient is a 48-year-old woman who has history of migraine headaches. She is never had a CAT scan of her head or MRI of her brain. There is no family history of aneurysm or subarachnoid hemorrhage. She reports sinus congestion started last and was started on Augmentin on Wednesday. She was diagnosed with sinus infection. She denies fever. She denies neck stiffness but does complain of neck pain. She states she is never had a headache like this. The headache came on abruptly. She has no other symptoms. Prior similar symptoms: No Recent Illness/Hospitalization: No - Past Medical History (1) Cystocele Status: Chronic (2) Enterocele Status: Chronic (3) Rectocele Status: Chronic (4) Uterovaginal prolapse, incomplete Status: Chronic Past Medical History - Allergies and Home Meds Allergies/Adverse Reactions: Allergies bee venom protein (honey bee) Allergy (Verified 10/02/19 12:40) Anaphylaxis morphine Adverse Reaction (Verified 10/02/19 12:40) Vomiting Primary Care Physician: Kaya Pinto DO [Primary Care Provider] - Prior records reviewed: Yes Lives: Spouse/ Significant Other Smoking Status: Never smoker Alcohol: None Drugs: None Review of Systems General: Denies: Chills, Fever, Malaise, Subjective, Sweats Eyes: Reports: Blurred Vision - bilaterally. Denies: Visual changes - bilaterally, Diplopia ENT: Denies: Bilateral ear pain, Rhinorrhea, Sore throat Cardiovascular: Denies: Chest pain, Palpitations Respiratory: Denies: Dyspnea, Cough, Dyspnea on exertion Gastrointestinal: Reports: Nausea, Vomiting. Denies: Abdominal pain, Diarrhea, Constipation, Melena, Hematochezia Genitourinary: Denies: Dysuria, Hematuria, Frequency Musculoskeletal: Reports: Neck pain. Denies: Myalgias, Arthralgias, Back pain, Swelling, Extremity Pain, -, - Skin: Denies: Rash, Wounds Neurological: Reports: Headache. Denies: Weakness, Parasthesia, Numbness Hematologic: Denies: Easy bruising, Easy bleeding Physical Exam Vital Signs/Narrative: Vital Signs Temp Pulse Resp BP Pulse Ox 10/31/19 20:02 96.7 F L 63 16 131/89 H 100 Inital Vital Signs reviewed: Yes General: Well nourished, Well developed, Obese Head: NC, AT. Negative for: Trauma, Tenderness, Temporary Artery Tenderness, Vesicular Rash, Sinus Tenderness Eyes: Perrl, EOMI, - - There is no APD. Cup-to-disc ratio appears normal. There is no papilledema.. Negative for: Pale conjunctiva, Scleral icterus ENT: Moist mucous membranes, No rhinorrhea, TM's clear. Negative for: Nasal congestion, Sinus tenderness Neck: Supple, No Lymphadenopathy, No JVD, Nontender, No Meningismus, - - Complains of pain with passive flexion extension. Cardiovascular: Regular rate, Regular rhythm, No murmurs, Normal S1, Normal S2 Respiratory: No distress, CTA bilaterally, Chest nontender Rectal: Deferred Extremities: Nontender, No edema Skin: Normal color, No rash, No Trauma. Negative for: Cyanosis, Diaphoresis, Jaundice Neuro: Alert, Oriented x3, Cranial nerves II-XII grossly intact, Normal Strength, Normal Sensation, Normal DTR, - - There is no clonus or Babinski sign. Psychological: Normal affect Diagnostic/Tx/Re-eval - Medical Decision Making Received 4 mg of Zofran prior to arrival. She received additional 4 mg of Zofran for her nausea. Since she reports thunderclap headache and appears ill will obtain CT of the head to assess for subarachnoid hemorrhage. Onset was 1.5 hours prior to arrival. CSF fluid was sent to assess for possibility infection. Is no evidence of bleed. Fluid does not become cloudy until white count is greater than 600. Therefore meningitis needs to be evaluated and ruled out. If no evidence of inflammation with increased intracranial pressure one needs to evaluate for idiopathic intracranial hypertension, venous sinus thrombosis. Patient will need MRI MRV in all likelihood. Once CSF fluid results are available for review will contact hospitalist for admission. Procedures Procedure(s): Patient was consented for lumbar puncture to rule out intracranial bleed and to determine etiology of her abrupt headache with nausea and vomiting. She was informed of risk benefits of lumbar puncture. 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 She did consent. Patient was prepped draped sterile manner. The L3-4 interspace was anesthetized. On second attempt the spinal canal was cannulated with clear colorless fluid noted. Opening pressures between 36 and 39 cm. This is markedly elevated. This would explain her headache. Need to determine the cause of her intracranial hypertension. ED Disposition - Plan for ED Patient: Disposition: Acute Care [facility] Diagnosis: Intracranial hypertension, Acute intractable headache Referrals: Kaya Pinto DO [Primary Care Provider] -
[2019-10-31] MEDS: Ondansetron 4 MG/2 ML Vial IV (20:43)
[2019-10-31 20:44] VITALS: BP 142/89; PULSE 72; RESP 18; O2SAT 100
[2019-10-31] MEDS: Morphine 4 MG/ML Syringe IV (20:51)
[2019-10-31 21:57] VITALS: BP 113/57; PULSE 74; RESP 20; O2SAT 100
[2019-10-31] MEDS: Metoclopramide 10 MG/2 ML Vial 5 MG IV (22:09)
[2019-10-31] MEDS: HYDROmorphone 0.5 MG/0.5 ML SYRINGE IV (22:09)
[2019-10-31] MEDS: proMETHazine 25 MG/ML Syringe 6.25 MG IV (23:13)
[2019-10-31] MEDS: Ketorolac 15 MG/ML Vial IV (23:14)
[2019-10-31 23:20] VITALS: BP 122/69; PULSE 55; RESP 14; O2SAT 100
[2019-10-31 23:43] LABS: Body Fluid Mononuclear WBC # 0.002 10^3/uL; Body Fluid Mononuclear WBC % 66.6 %; Body Fluid Polynuclear WBC # 0.001 10^3/uL; Body Fluid Polynuclear WBC % 33.4 %
[2019-11-01] VITALS (11 sets, daily range): BP systolic 109–130; BP diastolic 57–84; PULSE 54–90; RESP 16; TEMP 36.6–36.8; O2SAT 96–100; BMI 32.3; BMI 32.4
[2019-11-01 00:01] LABS: Glucose Spinal Fluid 69 mg/dL (40-75)
[2019-11-01 00:40] LABS: Appearance CSF (character) CLEAR (Clear); Auto B Fluid Analyzer BKGD Ct COUNTS W/IN LIMITS (W/IN LIMITS); CSF Color COLORLESS (Colorless); Tested Tube # 1
[2019-11-01 00:41] LABS: RBC Count, Spinal Fluid 3 /mm-3 (None seen); White Count, CSF 2 /mm-3 (0 - 5)
--- NOTE | 2019-11-01 01:19 | PCM.HP.STD ---
Problem List (1) Headache Status: Acute Qualifiers: Headache type: tension-type Headache chronicity pattern: acute headache Intractability: intractable Qualified Code(s): G44.201 - Tension-type headache, unspecified, intractable (2) GERD (gastroesophageal reflux disease) Status: Chronic Qualifiers: Esophagitis presence: esophagitis presence not specified Qualified Code(s): K21.9 - Gastro-esophageal reflux disease without esophagitis (3) Migraine Status: Chronic Qualifiers: Migraine type: unspecified Status migrainosus presence: without status migrainosus Intractability: intractable Qualified Code(s): G43.919 - Migraine, unspecified, intractable, without status migrainosus History of Present Illness Date of Admission: 11/01/19 Chief Complaint: Acute onset of headache- 1 day The patient is a 48 year old F past medical history of GERD, history of migraine with last migraine 6 to 7 months ago who came from work and felt very fatigued. She has been on Augmentin over the last 3 days for acute sinusitis. She felt very nauseous when she go home a couple of hours later. She vomited a couple of times and started to have acute onset of bilateral frontal headaches. The headache is the worst headache of her life, it felt pulsating, associated with nausea, relieved when she was given Toradol and Phenergan in the ED. It was not relieved with morphine or Dilaudid. She has never had this kind of headache before. She denied any fever or chills or shortness of breath. Vitals in the ED showed temperature 96.7 F, heart rate 83, blood pressure 131/89, respiratory to 16, SPO2 100% on room air. BC count was 13.0, hemoglobin 14.5, platelet count 217, CMP was unremarkable. Scan of the brain showed no acute intracranial abnormality. Small amount of fluid seen in the maxillary sinuses. She underwent lumbar puncture in the emergency department. CSF analysis was unremarkable with clear, colorless fluid, 1 cell count, WBC count was 2. Her opening pressures were reported as between 36-39. 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, vaginal (Chronic) Rectocele (Chronic) Cystocele (Chronic) GERD (gastroesophageal reflux disease) (Chronic) Migraine (Chronic) Allergies bee venom protein (honey bee) Allergy (Verified 10/02/19 12:40) Anaphylaxis morphine Adverse Reaction (Verified 10/02/19 12:40) Vomiting Home Medications: Ambulatory Orders Medication Instructions Recorded Epi Pen (for allergic rxn) 0.3 mg IM X1 12/23/17 Lorazepam [Ativan] 0.5 mg PO QHS PRN PRN 12/23/17 Rabeprazole Sodium [Aciphex] 20 mg PO DAILY 12/23/17 Ibuprofen [Motrin] 800 mg PO Q8H PRN PRN #20 tab 10/02/19 Amoxicillin/Potassium Clav 1 ea PO BID 10/31/19 [Augmentin 500-125 Tablet] Surgical History: hysterectomy Psychiatric History: Anxiety, Depression 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 Denies: Anorexia, Chills, Fever, Malaise, Weight Change Eyes: Denies: Blurred vision, Cataracts, Conjunctivae Inflammation, Double vision, Eyelid Inflammation, Pain, Redness, Vision Change HEENT: Denies: Difficulty Hearing, Difficulty Swallowing, Head Aches, Hearing Changes, Sinus Congestion, Sinus Drainage Cardiovascular: Denies: Chest Pain, Claudication, Orthopnea, Palpitations Respiratory: Denies: Cough, Hemoptysis, Shortness of breath at rest, Shortness of breath upon exertion, Sputum production Gastrointestinal: Denies: Abdominal Pain, Hematemesis, Hematochezia, Nausea, Vomiting Genitourinary: Denies: Dysuria, Frequency, Incontinence Gynecological: Denies: Breast symptoms, Excessively long or heavy periods Musculoskeletal: Denies: Joint Pain, Joint stiffness, Joint swelling, Joint Tenderness Skin: Denies: Rash, Wounds Neurological: Reports: Headaches. Denies: Change in Speech, Slurred speech, Confusion, Focal weakness, Numbness, Tingling Psychiatric: Denies: Anxiety, Depression, Homicidal Ideations, Suicidal Ideations Endocrine: Denies: Change in Body Habitus Hematologic/ Lymphatic: Denies: Easy Bruising, Easy Bleeding VTE Information - Inpt Only VTE Present on Admission: No VTE Pharm Prophylaxis ordered?: Yes Patient Problems: Active and Suspected Problems Intracranial hypertension (Acute) Acute intractable headache (Acute) Headache (Acute) - Physical Exam Vitals/I&O's: Vital Signs Temp Pulse Resp BP Pulse Ox 96.7 F L 55 L 14 122/69 H 100 10/31/19 20:02 10/31/19 23:20 10/31/19 23:20 10/31/19 23:20 10/31/19 23:20 Oxygen Delivery Method Room Air Weight: 88 kg Body Mass Index (BMI) 32.3 General: Alert, Oriented x3, Cooperative, - - in mild distress from headaches HEENT: Atraumatic, PERRLA, EOMI, Normocephalic Oral: Moist Mucosa Neck: Supple Lungs: Clear to auscultation, Normal air movement Cardiovascular: Regular rate, Regular Rhythm, Normal S1, Normal S2, Tachycardic Abdomen: Bowel Sounds Present, Soft, Non Tender, Non-Distended, No Hepato-splenomegaly Extremities: No edema Skin: No rashes Musculoskeletal: No Tenderness to Palpation of Joints or Extremities Lymphatic: No Cervical, Supraclavicular, or Inguinal Adenopathy Neurological: Cranial nerves II-XII grossly intact, Neuro grossly intact Psych/Mental Status: Normal Affect, Appropriate Microbiology Past 72 Hours 10/31/19 23:00 Csf, Spinal Fluid Gram Stain - Preliminary Laboratory Results 10/31/19 23:00: CSF Glucose 69 10/31/19 23:00: CSF Total Protein 32.0 10/31/19 23:00: Fld Polynuclear WBCs # 0.001, Fld Polynuclear WBCs % 33.4, Fluid Mononuclear WBCs 0.002, Fld Mononuclear WBCs % 66.6, CSF Appearance CLEAR, CSF Color COLORLESS, CSF WBC 2, CSF RBC 3 H, CSF Cell Count Tube # 1, CSF Total Cell Counted Not Reportable, CSF Comment May follow Current Medications Acetaminophen (Tylenol) 1,000 mg PO Q8 [facility] Amoxicillin/Clavulanate Potassium (Augmentin Tablet) 500 mg PO BID [facility] Diazepam (Valium) 5 mg PO X1 ONE Stop: 11/01/19 01:18 Docusate Sodium (Colace) 100 mg PO BID PRN PRN PRN Reason: Constipation Hydromorphone HCl (Dilaudid Inj) 0.5 mg IV Q4H PRN PRN PRN Reason: Pain Score 6-10/10 Sodium Chloride () 250 mls @ 15 mls/hr IV .[id number] PRN PRN Reason: Saline Flush Sodium Chloride () 250 mls @ 15 mls/hr IV .[id number] PRN PRN Reason: Additional IVPB Infusion Sodium Chloride () 1,000 mls @ 100 mls/hr IV .Q10H [facility] Stop: 11/01/19 16:19 Ibuprofen (Motrin) 800 mg PO Q8H PRN PRN PRN Reason: Pain Score 1-10/10/FEVER Ketorolac Tromethamine (Toradol) 15 mg IV Q6H PRN PRN PRN Reason: HEADACHE Stop: 11/06/19 01:16 Pantoprazole Sodium (Protonix) 20 mg PO DAILY [facility] Promethazine HCl (Phenergan) 12.5 mg IV Q6H PRN PRN PRN Reason: NAUSEA/VOMITING Sodium Chloride () 10 - 40 ml IV UD PRN PRN Reason: SALINE FLUSH Assessment/Plan All Active Problems Intracranial hypertension (Acute) Acute intractable headache (Acute) Headache (Acute) 48 year old F past medical history of GERD, history of migraine who comes in with acute onset of severe headache. 1. Acute headache, unclear etiology for now, CT scan of the head is negative for acute bleed History of migraine. This headache feels very different from her previous migraine. Will continue on Toradol with Phenergan, Tylenol and ibuprofen as needed Will get MRV of the brain for possible cerebral venous sinus thrombosis 2. GERD, on PPI 3. Recent sinusitis, continue on Augmentin 4. DVT PPx -early ambulation Code Visit Inpatient E&M: 35832 Init Hosp L3
--- NOTE | 2019-11-01 01:22 | MRI_ITS ---
STUDY: EXAMINATION - MRV BRAIN WITHOUT CONTRAST REASON FOR EXAM: Female, 48 years old. acute onset headache, hx migraines TECHNIQUE: 3D [id number] (TOF) imaging was performed in a jesús MRI scanner. COMPARISON: None. FINDINGS: Normal flow within the superior sagittal sinus. Normal flow within the superficial cortical veins. Normal flow within the paired internal cerebral veins, vein of Royce and straight sinus. Normal flow within the bilateral transverse and sigmoid sinuses. There is some decreased signal within the distal aspect of the right transverse sinus which may represent a transverse sinus stenosis. Transverse sinus stenosis associated with idiopathic intracranial hypertension (pseudocyst tumor cerebri) is in correlation with funduscopic exam would be useful to exclude papilledema. Normal flow within the bilateral jugular bulbs. MRI/MRV Head Without Contrast IMPRESSION: Questionable stenosis of the distal right transverse sinus which can be seen in idiopathic intracranial hypertension (pseudotumor cerebri) in this patient with headaches. Correlation with funduscopic exam would be useful to exclude papilledema. MRI with contrast may also be useful to Electronically Signed: Corbin Askew MD at 8:47 EST Tel , Service support ,
[2019-11-01 01:33] LABS: Absolute Neutrophil Count 11.4 X10^3/uL (2.0-7.7); Basophil# 0.04 X10^3/uL; Basophil% 0.3 % (0-1); Hematocrit 44.5 % (37-47); Hemoglobin 14.5 g/dL (12.0-15.0); Lymphocyte % 6.2 % (19-41); Mean Corp Hgb Conc 32.6 g/dL (32-36); Mean Corpuscular Hgb 29.7 pg (27.0-32.0); Mean Platelet Vol. 10.8 fl (6.2-12.0); Monocyte% 5.4 % (0-10); NRBC Flagged by Analyzer 0 % (0-5); Neutrophil # 11.38 X10^3/uL (2.7-7.7); Neutrophil % 87.8 % (47-70); Platelet Count 207 K/mm3 (150-450); RBC Distribution Width CV 11.9 % (11.6-14.6); RBC Distribution Width SD 39.5 fl (35.1-43.9); Red Blood Count 4.89 M/mm3 (4.2-5.4)
[2019-11-01] MEDS: 0.9% Saline Lock 10 ML Syringe IV ×3 (01:44→19:30)
[2019-11-01] MEDS: 0.9% Normal Saline 1,000 ML 100 ML IV ×2 (01:44→14:39)
[2019-11-01] MEDS: Ketorolac 15 MG/ML Vial IV ×3 (01:45→19:29)
[2019-11-01] MEDS: proMETHazine 25 MG/ML Syringe 12.5 MG IV ×3 (01:45→19:29)
[2019-11-01 01:50] LABS: ALB/GLOB Ratio 1.1 RATIO (0.9-2.4); AST(SGOT) 14 U/L (15-37); Alanine Aminotransfer ALT/SGPT 42 U/L (13-56); Albumin, Serum 3.8 g/dL (3.2-5.0); Alkaline Phosphatase 96 U/L (45-117); Anion Gap 6 (5-15); BUN 13 mg/dL (7-18); BUN/Creat Ratio 17.5 RATIO (10-20); Calcium,Total 9.1 mg/dL (8.5-10.1); Chloride 108 mmol/L (98-107); Creatinine, Serum 0.74 mg/dL (0.55-1.02); EST Glomerular Filtration Rate 87 mL/min (>60); Est Glom Filt Rate - Afr Amer 106 mL/min (>60); Estimated Creatinine Clearance 81.84 ml/min; Globulin 3.5 g/dL (2.2-4.2); Glucose 106 mg/dL (74-106); Potassium 3.9 mmol/L (3.5-5.1); Protein, Total 7.3 g/dL (6.4-8.2); Sodium Level 139 mmol/L (136-145)
[2019-11-01] MEDS: diazePAM 5 MG Tablet PO (02:00)
[2019-11-01 02:15] LABS: Body Fluid QC Type(s) BF1Q,BF2Q
[2019-11-01] MEDS: Acetaminophen 500 MG Tablet 1000 MG PO ×3 (05:54→21:33)
[2019-11-01] MEDS: Pantoprazole Sodium 20 MG Tablet PO (09:47)
[2019-11-01] MEDS: Amox/Clavulanate 500 MG Tablet PO ×2 (09:47→21:33)
--- NOTE | 2019-11-01 13:42 | PN_ITS ---
Patient Problems: Active and Suspected Problems Intracranial hypertension (Acute) Acute intractable headache (Acute) Headache (Acute) Subjective: Patient seen and examined. She was admitted with a complaint of severe headache. She does have a history of migraines but states this headache was unlike usual migraine headache and was much more severe. She had been taking Augmentin over the last 3 days prior to admission for acute sinusitis and says she felt nauseous at work so she went home and started vomiting and then the hea dache started. It was severe, and frontal and bilateral. She had assisted nausea. CT of the brain showed no acute intracranial abnormality and only small fluid in the maxillary sinuses. LP was done on admission and analysis of the LP fluid were essentially unremarkable. Opening pressures were however slightly elevated at between 36 and 39. Patient still complains of headache today but states it is much better today. She denies any photophobia and denies any lightheadedness or dizziness. Nausea and vomiting have resolved. Review of symptoms otherwise negative. Vitals/I&O's: Vital Signs Temp Pulse Resp BP Pulse Ox 98.1 F 80 16 119/64 100 11/01/19 09:33 11/01/19 09:33 11/01/19 09:33 11/01/19 09:33 11/01/19 09:33 Oxygen Delivery Method Room Air Weight: 194 lb 0.108 oz Body Mass Index (BMI) 32.3 Intake and Output for Last 24 Hours 10/30/19 10/31/19 11/01/19 23:59 23:59 23:59 Intake Total 995 / 995 Balance 995 / 995 General: Alert, Oriented x3, Cooperative, No apparent distress HEENT: Atraumatic, PERRLA, EOMI, Normocephalic Oral: Moist Mucosa Neck: Supple, No JVD, Negative Carotid Bruits Lungs: Clear to auscultation, Normal air movement, No rhonchi, No wheeze Cardiovascular: Regular rate, Regular Rhythm, Normal S1, Normal S2, No murmurs Abdomen: Bowel Sounds Present, Soft, Non Tender, Non-Distended, No Hepato- splenomegaly Extremities: No clubbing, No cyanosis, No edema, Capillary Refill Less than 3 Seconds Skin: No rashes, No breakdown Musculoskeletal: No Tenderness to Palpation of Joints or Extremities Lymphatic: No Cervical, Supraclavicular, or Inguinal Adenopathy Neurological: Cranial nerves II-XII grossly intact, Neuro grossly intact, Motor Exam 5/5 strength throughout Psych/Mental Status: Normal Affect, Appropriate, Alert and oriented to time, place, person, mood and affect Microbiology Past 72 Hours 10/31/19 23:00 Csf, Spinal Fluid Gram Stain - Final Laboratory Results 10/31/19 23:00: CSF Glucose 69 10/31/19 23:00: CSF Total Protein 32.0 10/31/19 23:00: Fld Polynuclear WBCs # 0.001, Fld Polynuclear WBCs % 33.4, Fluid Mononuclear WBCs 0.002, Fld Mononuclear WBCs % 66.6, CSF Appearance CLEAR, CSF Color COLORLESS, CSF WBC 2, CSF RBC 3 H, CSF Cell Count Tube # 1, CSF Total Cell Counted Not Reportable, CSF Comment May follow 11/01/19 01:22: WBC 13.0 H, RBC 4.89, Hgb 14.5, Hct 44.5, MCV 91.0, MCH 29.7, MCHC 32.6, RDW Std Deviation 39.5, RDW Coeff of Teresa 11.9, Plt Count 207, MPV 10.8, Immature Gran % (Auto) 0.300, Neut % (Auto) 87.8 H, Lymph % (Auto) 6.2 L, [place] % (Auto) 5.4, Eos % (Auto) 0.0, Baso % (Auto) 0.3, Absolute Neuts (auto) 11.4 H, Absolute Lymphs (auto) 0.80 L, Nucleated RBC % 0 11/01/19 01:22: Sodium 139, Potassium 3.9, Chloride 108 H, Carbon Dioxide 25.0, Anion Gap 6, BUN 13, Creatinine 0.74, Estim Creat Clear Calc 81.84, Est GFR (MDRD) Af Amer 106, Est GFR (MDRD) Non-Af 87, BUN/Creatinine Ratio 17.5, Glucose 106, Calcium 9.1, Total Bilirubin 0.40, AST 14 L, ALT 42, Alkaline Phosphatase 96, Total Protein 7.3, Albumin 3.8, Globulin 3.5, Albumin/Globulin Ratio 1.[address] 10/31/19 20:32 IMPRESSION: No acute intracranial abnormality. Small amount of fluid in the maxillary sinuses. Electronically Signed: Stefano Mullins, at 20:58 EST Tel , Service support , Brain MRI 11/01/19 01:22 IMPRESSION: Questionable stenosis of the distal right transverse sinus which can be seen in idiopathic intracranial hypertension (pseudotumor cerebri) in this patient with headaches. Correlation with funduscopic exam would be useful to exclude papilledema. MRI with contrast may also be useful to Electronically Signed: Corbin Askew MD at 8:47 EST Tel , Service support , Current Medications Acetaminophen (Tylenol) 1,000 mg PO Q8 [facility] Last Admin: 11/01/19 05:54 Dose: 1,000 mg Documented by: Amoxicillin/Clavulanate Potassium (Augmentin Tablet) 500 mg PO BID [facility] Last Admin: 11/01/19 09:47 Dose: 500 mg Documented by: Docusate Sodium (Colace) 100 mg PO BID PRN PRN PRN Reason: Constipation Hydromorphone HCl (Dilaudid Inj) 0.5 mg IV Q4H PRN PRN PRN Reason: Pain Score 6-10/10 Sodium Chloride () 250 mls @ 15 mls/hr IV .[id number] PRN PRN Reason: Saline Flush Sodium Chloride () 250 mls @ 15 mls/hr IV .[id number] PRN PRN Reason: Additional IVPB Infusion Sodium Chloride () 1,000 mls @ 100 mls/hr IV .Q10H [facility] Stop: 11/01/19 16:19 Last Infusion: 11/01/19 09:40 Dose: 100 mls/hr Documented by: Ibuprofen (Motrin) 800 mg PO Q8H PRN PRN PRN Reason: Pain Score 1-10/10/FEVER Ketorolac Tromethamine (Toradol) 15 mg IV Q6H PRN PRN PRN Reason: HEADACHE Stop: 11/06/19 01:16 Last Admin: 11/01/19 09:46 Dose: 15 mg Documented by: Pantoprazole Sodium (Protonix) 20 mg PO DAILY [facility] Last Admin: 11/01/19 09:47 Dose: 20 mg Documented by: Promethazine HCl (Phenergan) 12.5 mg IV Q6H PRN PRN PRN Reason: NAUSEA/VOMITING Last Admin: 11/01/19 09:46 Dose: 12.5 mg Documented by: Sodium Chloride () 10 - 40 ml IV UD PRN PRN Reason: SALINE FLUSH Last Admin: 11/01/19 09:47 Dose: 20 ml Documented by: Medical Necessity - Tobacco Use Smoking Status: Never smoker Assessment/Plan All Active Problems Intracranial hypertension (Acute) Acute intractable headache (Acute) Headache (Acute) 1. Acute frontal headache * etiology is still not clear; she does have a history of migraines, but says this headache was unlike her previous migraines. * CT of the head showed no acute intracranial pathology * MRI/MRV of head without contrast: questionable stenosis of distal right transverse sinus which can be seen in idiopathic intracranial hypertension. * continue Toradol, phenergan and tylenol prn. * neurology consulted- per discussion with neurology, CSF was unremarkable. Patient's headache is mild now; neurology thinks increased opening pressures may have been because patient was in a position for LP. * neurology thinks mild headache now may be due to post LP headache, which will resolve in ~ 14 days; to advise patient to lay flat and keep hydrated. Blood patch will be of last resort if needed, as it can cause fibrosis around the spinal cord. * 2. GERD: on PPI 3. Sinusitis; recently diagnosed with sinusitis. On augmentin; will continue DVT prophylaxis; SCDs Code Visit OBSV E&M: 72115 Subsequent observation care L2
[2019-11-01 13:48] LABS: Pathologist Review Reviewed
[2019-11-02 02:59] VITALS: PULSE 56
[2019-11-02] MEDS: Acetaminophen 500 MG Tablet 1000 MG PO (05:29)
[2019-11-02 05:31] VITALS: BP 122/71; PULSE 61; RESP 18; TEMP 36.4; O2SAT 99
[2019-11-02 06:59] VITALS: PULSE 67
[2019-11-02] MEDS: Ibuprofen 400 MG Tablet 800 MG PO (09:01)
[2019-11-02] MEDS: Amox/Clavulanate 500 MG Tablet PO (09:01)
[2019-11-02] MEDS: Pantoprazole Sodium 20 MG Tablet PO (09:01)
--- NOTE | 2019-11-02 09:39 | PCM.DC ---
- Discharge Diagnoses Current Active Problems: Current Active and Chronic Problems Intracranial hypertension (Acute) Acute intractable headache (Acute) Headache (Acute) GERD (gastroesophageal reflux disease) (Chronic) Migraine (Chronic) You will use the following diet at home:: Cardiac Your food should be the consistency of: Regular Your liquids should be the consistency of: Regular/Thin Discharge Activity: Return to Normal Activity Weight Bearing Status: Weight bearing as tolerated Call your doctor if you observe: Numbness or Tingling, Uncontrolled pain, - - worsening and recurrent headache Instructions: Self-Care for Headaches, Understanding Headache Pain, Migraine Headache: Stages and Treatment, Preventing Migraine Headaches: Triggers, Preventing Migraine Headaches: Medications and Lifestyle Changes Additional Instructions: To be referred to neurologist by PCP. Allergies/Adverse Reactions: Allergies bee venom protein (honey bee) Allergy (Verified 10/02/19 12:40) Anaphylaxis morphine Adverse Reaction (Verified 10/02/19 12:40) Vomiting Medications to take at Discharge Epi Pen (for allergic rxn) 0.3 mg IM X1 12/23/17 Lorazepam [Ativan] 0.5 mg PO QHS PRN PRN 12/23/17 Rabeprazole Sodium [Aciphex] 20 mg PO DAILY 12/23/17 Ibuprofen [Motrin] 800 mg PO Q8H PRN PRN #20 tab 10/02/19 Amoxicillin/Potassium Clav [Augmentin 500-125 Tablet] 1 ea PO BID 10/31/19 proMETHazine tablet [Phenergan tablet] 25 mg PO Q4H PRN PRN #20 tab 11/02/19 The following prescriptions were given: proMETHazine tablet [Phenergan tablet] 25 mg PO Q4H PRN PRN #20 tab PRN Reason: Vomiting Transmission Status: Pending to [id number] Primary Care Physician: Kaya Pinto DO [Primary Care Provider] - Please follow up with your Primary Care Physician in: one week Test Results: Test results from this visit will be discussed in further detail at your follow-up appointment, if applicable. Proposed Discharge Date: 11/02/19
--- NOTE | 2019-11-02 09:41 | DS.PCM_ITS ---
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 Small amount of fluid in the maxillary sinuses. Electronically Signed: Stefano Mullins, at 20:58 EST Tel , Service support , Brain MRI 11/01/19 01:22 IMPRESSION: Questionable stenosis of the distal right transverse sinus which can be seen in idiopathic intracranial hypertension (pseudotumor cerebri) in this patient with headaches. Correlation with funduscopic exam would be useful to exclude papilledema. MRI with contrast may also be useful to Electronically Signed: Corbin Askew MD at 8:47 EST Tel , Service support , neurology Operations: None Procedures: None Summary of Care Provided: The patient is a 48 year old F with a past medical history as listed which includes migraines. She was admitted through the ED on 11/01/2019 with a complaint of acute onset of headache. She had been managed over the past few days for acute sinusitis for which she was on Augmentin. She went home after work and started feeling nauseous and had vomiting and had acute onset of bilateral frontal headaches which she said was the worst headache she had had in her life. She came to the ED with pain was not relieved with morphine or Dilaudid. She had a CT of the brain done which showed no acute intracranial abnormality. And only showed small amount of fluid in the maxillary sinuses. She underwent lumbar puncture in the ED which had opening pressure which is slightly elevated at that between 36 and 39 and colorless fluid with cell count of 1 and WBC count of 2. Neurology was consulted in light of severe headache. MRV of the head and MRI done showed questionable stenosis of the distal right transverse sinus which can be seen in idiopathic intracranial hypertension in patients with headache. However, per neurologist, he was not convinced patient had intracranial hypertension because he said the opening pressures that was slightly elevated could be due to the fact that the LP was done in a position. Per neurology, patient's headache is subsequently improved and the residual headache that she was having could be due to post LP headache and the recommended that patient lie recumbent in bed and keep well-hydrated and she was counseled that post LP headache might take about 2 weeks to resolve. Patient improved markedly and headache resolved and she was discharged home on 11/02/2019. She was discharged with a prescription for Phenergan and she is to follow-up with her primary care doctor for referral to a neurologist. Patient seen and examined prior to discharge. She had no complaints. Review of signs otherwise negative. Labs and vitals reviewed. Home medication reviewed and reconciled. o/e: Vital Signs Height 5 ft 5 in Weight: 196 lb 3.382 oz Weight in Pounds 196.2 lbs Pulse Ox 96 Temperature 98.4 F Pulse Rate 71 Respiratory Rate 16 Blood Pressure 113/66 Blood Pressure Position Semi-Fowlers [] General: Alert, Oriented x3, Cooperative, No apparent distress HEENT: Atraumatic, PERRLA, EOMI, Normocephalic Oral: Moist Mucosa Neck: Supple, No JVD, Negative Carotid Bruits Lungs: Clear to auscultation, Normal air movement, No rhonchi, No wheeze Cardiovascular: Regular rate, Regular Rhythm, Normal S1, Normal S2, No murmurs Abdomen: Bowel Sounds Present, Soft, Non Tender, Non-Distended, No Hepato- splenomegaly Extremities: No clubbing, No cyanosis, No edema, Capillary Refill Less than 3 Seconds Skin: No rashes, No breakdown Musculoskeletal: No Tenderness to Palpation of Joints or Extremities Lymphatic: No Cervical, Supraclavicular, or Inguinal Adenopathy Neurological: Cranial nerves II-XII grossly intact, Neuro grossly intact, Motor Exam 5/5 strength throughout Psych/Mental Status: Normal Affect, Appropriate, Alert and oriented to time, place, person, mood and affect Plan as above. For discharge home today. - Physical Exam Vitals/I&O's: Vital Signs Temp Pulse Resp BP Pulse Ox 97.6 F L 67 18 122/71 H 99 11/02/19 05:31 11/02/19 06:59 11/02/19 05:31 11/02/19 05:31 11/02/19 05:31 Oxygen Delivery Method Room Air Weight: 196 lb 3.382 oz Body Mass Index (BMI) 32.3 Intake and Output for Last 24 Hours 10/31/19 11/01/19 11/02/19 23:59 23:59 23:59 Intake Total 2220 / 2220 880 / 880 Balance 2220 / 2220 880 / 880 Microbiology Past 72 Hours 10/31/19 23:00 Csf, Spinal Fluid Gram Stain - Final Laboratory Results 10/31/19 23:00: CSF Comment Reviewed Current Medications Acetaminophen (Tylenol) 1,000 mg PO Q8 [facility] Last Admin: 11/02/19 05:29 Dose: 1,000 mg Documented by: Amoxicillin/Clavulanate Potassium (Augmentin Tablet) 500 mg PO BID [facility] Last Admin: 11/02/19 09:01 Dose: 500 mg Documented by: Docusate Sodium (Colace) 100 mg PO BID PRN PRN PRN Reason: Constipation Hydromorphone HCl (Dilaudid Inj) 0.5 mg IV Q4H PRN PRN PRN Reason: Pain Score 6-10/10 Sodium Chloride () 250 mls @ 15 mls/hr IV .[id number] PRN PRN Reason: Saline Flush Sodium Chloride () 250 mls @ 15 mls/hr IV .[id number] PRN PRN Reason: Additional IVPB Infusion Ibuprofen (Motrin) 800 mg PO Q8H PRN PRN PRN Reason: Pain Score 1-10/10/FEVER Last Admin: 11/02/19 09:01 Dose: 800 mg Documented by: Ketorolac Tromethamine (Toradol) 15 mg IV Q6H PRN PRN PRN Reason: HEADACHE Stop: 11/06/19 01:16 Last Admin: 11/01/19 19:29 Dose: 15 mg Documented by: Pantoprazole Sodium (Protonix) 20 mg PO DAILY [facility] Last Admin: 11/02/19 09:01 Dose: 20 mg Documented by: Promethazine HCl (Phenergan) 12.5 mg IV Q6H PRN PRN PRN Reason: NAUSEA/VOMITING Last Admin: 11/01/19 19:29 Dose: 12.5 mg Documented by: Sodium Chloride () 10 - 40 ml IV UD PRN PRN Reason: SALINE FLUSH Last Admin: 11/01/19 19:30 Dose: 10 ml Documented by: Discharge Diet: Low fat/ Low Cholesterol Discharge Activity: Return to Normal Activity Weight Bearing Status: Weight bearing as tolerated Call your doctor if you observe: Numbness or Tingling, Uncontrolled pain, - - worsening and recurrent headache Home Medications: Medications to take at Discharge Epi Pen (for allergic rxn) 0.3 mg IM X1 12/23/17 Lorazepam [Ativan] 0.5 mg PO QHS PRN PRN 12/23/17 Rabeprazole Sodium [Aciphex] 20 mg PO DAILY 12/23/17 Ibuprofen [Motrin] 800 mg PO Q8H PRN PRN #20 tab 10/02/19 Amoxicillin/Potassium Clav [Augmentin 500-125 Tablet] 1 ea PO BID 10/31/19 proMETHazine tablet [Phenergan tablet] 25 mg PO Q4H PRN PRN #20 tab 11/02/19 Following Prescrptions Were Given to Patient: proMETHazine tablet [Phenergan tablet] 25 mg PO Q4H PRN PRN #20 tab PRN Reason: Vomiting Transmission Status: Received by [id number] Primary Care Physician: Kaya Pinto DO [Primary Care Provider] - Please follow up with your Primary Care Physician in: one week Patient Instructions: Self-Care for Headaches, Understanding Headache Pain, Migraine Headache: Stages and Treatment, Preventing Migraine Headaches: Triggers, Preventing Migraine Headaches: Medications and Lifestyle Changes Disposition: Home Minutes spent on discharge:: 35 Patient Condition:: Stable Medical Necessity - Tobacco Use Smoking Status: Never smoker Meaningful Use Info Meaningful Use Diagnoses (Choose all that apply): None applicable Code Visit OBSV E&M: 91343 Observation care discharge
--- NOTE | 2019-11-02 09:42 | PCM.WORK.EX ---
Work/School Excuse Please excuse this person from:: Work From: 11/01/19 through: 11/05/19
--- NOTE | 2019-11-02 10:45 | PHA.DC.MC ---
Pharmacy Service has performed discharge medication reconciliation and counseling for this patient. 1. PROMETHAZINE 25MG PO Q4H PRN VOMITING The patient's discharge medication list was reviewed for discrepancies and discrepancies were resolved. Home Medications Epi Pen (for allergic rxn) 0.3 mg IM X1 12/23/17 Lorazepam [Ativan] 0.5 mg PO QHS PRN PRN 12/23/17 Rabeprazole Sodium [Aciphex] 20 mg PO DAILY 12/23/17 Ibuprofen [Motrin] 800 mg PO Q8H PRN PRN #20 tab 10/02/19 Amoxicillin/Potassium Clav [Augmentin 500-125 Tablet] 1 ea PO BID 10/31/19 proMETHazine tablet [Phenergan tablet] 25 mg PO Q4H PRN PRN #20 tab 11/02/19 The patient was counseled on the following discharge medications and changes in medications for homegoing were reviewed. The Reason for Use, instructions for use, and potential side effects were reviewed for all new medications. The patient's questions regarding all of their medications were answered. The patient was able to verbally demonstrate an understanding of their discharge medications.
[2019-11-02 11:20] VITALS: BP 113/66; PULSE 71; RESP 16; TEMP 36.9; O2SAT 96
--- NOTE | 2019-11-02 12:00 | NURSING ---
Reviewed and agreed on all charting with Soni Miller RN
== END 2019-11-02 09:41 | disposition home or self-care (01) ==
LOC: ED 23:58 → PCU 11-01 02:42
PROVIDERS: Admitting Provider Internal Medicine; Emergency Provider Emergency Medicine; Family Provider Internal Medicine; PCP Internal Medicine; Visit Provider Student in an Organized Health Care Education/Training Program
DX: G43.909 Migraine, unspecified, not intractable, without status migrainosus (principal); K21.9 Gastro-esophageal reflux disease without esophagitis; M54.2 Cervicalgia; G93.2 Benign intracranial hypertension; F32.9 Major depressive disorder, single episode, unspecified; F41.9 Anxiety disorder, unspecified; J32.9 Chronic sinusitis, unspecified; Z79.899 Other long term (current) drug therapy
CPT/HCPCS: 36415; 62270; 70450; 70544; 80053; 82945; 84157; 85025; 87070; 87205; 89050; 89051; 96361; 96375; 96376; 97802; 99218; 99251; 99285; J7030; A4216; G0378; G0463; J2405

== ENCOUNTER → 2019-12-01 10:52 | Outpatient (CLI) | payer OTHER, SELFPAY ==
[2019-11-01 00:45] VITALS: BMI 32.3
--- NOTE | 2019-12-01 11:30 | MRI_ITS ---
STUDY: MRI BRAIN WITHOUT CONTRAST REASON FOR EXAM: Female, 48 years old. H/A, idiopathic intracranial hypertension -- frontal escobedo''s TECHNIQUE: Standardized multiplanar fat and water weighted pulse sequences were obtained. COMPARISON: CT 10/31/2019, MRV 11/01/2019 FINDINGS: Normal size of the ventricles and extra-axial spaces for the patient''s age. Normal white matter tracts of the supratentorial brain. There is no evidence for recent intracranial ischemia or other cause of cytotoxic edema on diffusion weighted imaging (DWI). Normal T2* images of the brain without demonstrated susceptibility artifact. There is no demonstrated hemosiderin stain. Normal bilateral basal ganglia. Normal thalami. There is no extra-axial fluid accumulation. Normal flow voids within the major intracranial circulation suggesting patency by spin echo criteria. There is enlargement of the sella turcica with increased CSF within the sella and flattening of the pituitary gland consistent with an empty sellar syndrome. Normal infundibular stalk, hypothalamus, and optic chiasm. Normal tectal plate and pineal gland. Normal midbrain, leigh and medulla. There is mild tonsillar ectopia, which is within normal limits, and without distortion of the brainstem. The findings are not consistent with an Arnold-Chiari type I malformation. Normal basal cisterns. Normal bilateral temporal bones. Normal bilateral internal auditory canals. No demonstrated orbital abnormality, within the constraints of a routine brain study. In particular, no flattening of the posterior sclera or dilatation optic nerve sheaths to suggest idiopathic intracranial hypertension (pseudotumor cerebri) arthrosis. Normal visualized paranasal sinuses. Normal calvarium and skull base. Normal visualized soft tissue structures. Normal visualized upper cervical spine. MRI/Brain without Contrast IMPRESSION: Normal unenhanced MRI of the brain. Partially empty sella but no other evidence of idiopathic intracranial hypertension (pseudotumor cerebri). Mild cerebellar tonsillar ectopia but no Chiari malformation. Electronically Signed: Corbin Askew MD at 13:52 EST Tel , Service support ,
== END ==
PROVIDERS: PCP Internal Medicine
DX: G93.2 Benign intracranial hypertension (principal); H47.10 Unspecified papilledema
CPT/HCPCS: 70551

== ENCOUNTER 2019-12-12 13:00 | Outpatient (RCR) | payer OTHER, SELFPAY ==
[2019-11-01 00:45] VITALS: BMI 32.3
== END 2019-12-23 23:59 ==
LOC: NS 13:00
PROVIDERS: PCP Internal Medicine; Visit Provider Internal Medicine
DX: Z71.3 Dietary counseling and surveillance (principal); E66.9 Obesity, unspecified; Z68.32 Body mass index [BMI] 32.0-32.9, adult; K21.9 Gastro-esophageal reflux disease without esophagitis
CPT/HCPCS: 97802; 97803

== ENCOUNTER → 2019-12-29 16:01 | Outpatient (CLI) | payer OTHER, SELFPAY ==
[2019-11-01 00:45] VITALS: BMI 32.3
--- NOTE | 2019-12-29 16:05 | RAD_ITS ---
STUDY: X-RAY CHEST REASON FOR EXAM: Female, 49 years old. Non-productive cough x 1 month. TECHNIQUE: PA and lateral views of the chest. COMPARISON: 05/01/2016. FINDINGS: The lungs are clear and expanded. There is no demonstrated pleural abnormality. Normal size heart. Normal mediastinum and rehan. Normal visualized pulmonary arteries. Normal visualized aortic arch and descending thoracic aorta. Normal visualized thoracic spine. Normal visualized ribs, clavicles, and shoulders. There is no demonstrated abnormality of the visualized soft tissue structures of the upper abdomen. RAD/Chest PA and Lateral IMPRESSION: Normal x-ray examination of the chest. Electronically Signed: Gillian Mathews MD at 4:13 EST , Service support ,
== END ==
PROVIDERS: PCP Internal Medicine; Referring Provider Nurse Practitioner; Visit Provider Nurse Practitioner
DX: R05 Cough (principal)
CPT/HCPCS: 71046

== ENCOUNTER 2020-01-12 10:44 | Outpatient (RCR) | payer OTHER, SELFPAY ==
[2019-11-01 00:45] VITALS: BMI 32.3
== END 2020-01-23 23:59 ==
LOC: NS 10:44
PROVIDERS: PCP Internal Medicine; Visit Provider Internal Medicine
DX: Z71.3 Dietary counseling and surveillance (principal); E66.9 Obesity, unspecified; Z68.32 Body mass index [BMI] 32.0-32.9, adult; K21.9 Gastro-esophageal reflux disease without esophagitis
CPT/HCPCS: 97803

== ENCOUNTER → 2020-01-17 15:50 | Outpatient (CLI) | payer OTHER, SELFPAY ==
[2019-11-01 00:45] VITALS: BMI 32.3
--- NOTE | 2020-01-17 15:59 | CT_ITS ---
We are attempting to reach an attending provider to discuss findings. An addendum with communication details will be sent when the communication is complete. STUDY: CTA CHEST REASON FOR EXAM: Female, 49 years old. Cough, HX PE RADIATION DOSAGE (If Supplied By Facility): CTDIvol = ( 9.89 ) mGy, DLP = ( 416.37 ) mGycm TECHNIQUE: The examination was performed with the intravenous administration of 100 CC ISOVUE 370. Post-processing of the angiographic images was performed, with multiplanar reformation and 3D reconstruction. Individualized dose optimization techniques were used for this CT. COMPARISON: CTA Chest 03/23/2018. FINDINGS: The exam is limited due to respiratory motion artifact. Normal enhancement of the main pulmonary artery and right and left pulmonary arteries. Normal enhancement of the bilateral peripheral pulmonary arteries. There is no demonstrated pulmonary embolism. There is stable mild aneurysmal dilatation of the ascending thoracic aorta which measures 2.7 cm in AP unremarkable 4.3 cm in mediolateral diameter.. There is no demonstrated aortic dissection. There is stable mild cardiomegaly. Normal mediastinum. Normal hilar regions. Normal visualized trachea and bronchi. The lungs are well expanded. There are diffuse groundglass pulmonary infiltrates. Normal pleura. Normal chest wall structures. Normal osseous structures. There is 1 cm x 8 mm hypodense lesion which measures cyst right lobe of the liver. This is larger in size when compared to prior exam. There is 3 mm hypodensity within the superior aspect of the right lobe of the liver. CT/CTA Chest W/WO Contrast IMPRESSION: Limited exam due to respiratory motion artifact Normal CTA chest examination, without a demonstrated pulmonary embolism or arterial dissection. Mild diffuse groundglass pulmonary infiltrates suspicious for pneumonia possible viral pneumonia versus pulmonary venous congestion Stable cardiomegaly Enlarging 1 cm x 8 mm likely cyst within the right lobe liver due to interval increase in size ultrasound follow-up should be performed 3 mm hypodensity superior aspect right lobe liver most likely cyst Electronically Signed: Ronald Mcdaniels, at 16:36 EDT Tel , Service support ,
== END ==
PROVIDERS: PCP Internal Medicine; Referring Provider Nurse Practitioner; Visit Provider Nurse Practitioner
DX: R05 Cough (principal)
CPT/HCPCS: 71275; Q9967

== ENCOUNTER → 2020-01-30 13:29 | Outpatient (CLI) | payer OTHER, SELFPAY ==
[2019-11-01 00:45] VITALS: BMI 32.3
--- NOTE | 2020-01-30 13:33 | RAD_ITS ---
STUDY: X-RAY CHEST REASON FOR EXAM: Female, 49 years old. Cough, general illness started in Nov. Was feeling better, cough has returned -- pulmonary infiltrates seen on CT done 01-16 TECHNIQUE: PA and lateral views of the chest. COMPARISON: Comparison is made with prior study dated December 29, 2019. FINDINGS: The lungs are clear and expanded. There is no demonstrated pleural abnormality. Normal size heart. Normal mediastinum and rehan. Normal visualized pulmonary arteries. Normal visualized aortic arch and descending thoracic aorta. Normal visualized thoracic spine. Normal visualized ribs, clavicles, and shoulders. There is no demonstrated abnormality of the visualized soft tissue structures of the upper abdomen. RAD/Chest PA and Lateral IMPRESSION: Normal x-ray examination of the chest. Electronically Signed: Jose Juan Cartwright, at 14:20 EDT , Service support ,
== END ==
PROVIDERS: PCP Internal Medicine; Referring Provider Nurse Practitioner; Visit Provider Nurse Practitioner
DX: R91.8 Other nonspecific abnormal finding of lung field (principal)
CPT/HCPCS: 71046

== ENCOUNTER → 2020-02-21 13:02 | Outpatient (CLI) | payer OTHER, SELFPAY ==
[2019-11-01 00:45] VITALS: BMI 32.3
--- NOTE | 2020-02-21 13:06 | ECHOD_ITS ---
Reason For Study: Cardiomegaly Procedure This was a 2D Doppler, Color Flow transthoracic echocardiogram. Exam performed in department. Left Ventricle Normal size and thickness. The estimated ejection fraction is 65 %. Normal diastology for age. No regional wall motion abnormalities noted. Right Ventricle Normal size and thickness. Normal systolic function. Atria Normal left atrium. Normal right atrium. Normal atrial septum. Mitral Valve The mitral valve is structurally normal. No prolapse or stenosis seen. Tricuspid Valve Normal tricuspid valve. Unable to estimate RV systolic pressure due to insufficient tricuspid regurgitant envelope. Aortic Valve Normal aortic valve. Trisinus/trileaflet aortic valve. Pulmonic Valve Normal pulmonic valve. Trivial pulmonic valve insufficiency. Great Vessels Normal aortic root. Normal arch. Normal inferior vena cava. Inferior vena cava collapse with sniff. Pericardium/Pleural No pericardial effusion. MMode/2D Measurements & Calculations LVIDd: 4.6 cm IVSd: 0.91 cm Ao root diam: 3.4 cm LVIDs: 3.1 cm LVPWd: 0.75 cm RVDd: 3.0 cm FS: 34.2 % LAV(MOD-bp): 39.1 ml LVAd ap4: 24.1 cm2 SV(MOD-sp4): 38.0 ml LAV(MOD-bp) Indexed: 20.5 ml/m2 EDV(MOD-sp4): 66.9 ml LAV(MOD-sp2): 35.1 ml EDV(sp4-el): 67.2 ml LAV(MOD-sp4): 40.7 ml LVAs ap4: 14.5 cm2 ESV(MOD-sp4): 28.9 ml ESV(sp4-el): 29.1 ml EF(MOD-sp4): 56.8 % EF(sp4-el): 56.7 % SV(sp4-el): 38.1 ml LA A4 area: 16.0 cm2 LA dimension(2D): 3.1 cm RA A4 area: 12.9 cm2 Doppler Measurements & Calculations MV E max tyrese: 71.8 cm/sec Lat Peak E' Tyrese: 11.6 cm/sec Med Peak E' Tyrese: 9.6 cm/sec MV A max tyrese: 57.4 cm/sec E/E' lat: 6.2 E/E' med: 7.5 MV E/A: 1.2 Ao V2 max: 106.5 cm/sec LV V1 max: 88.6 cm/sec PA V2 max: 72.3 cm/sec Ao max P.5 mmHg LV V1 max P.1 mmHg Interpretation Summary The estimated ejection fraction is 65 %. Normal diastology for age. Unable to estimate RV systolic pressure due to insufficient tricuspid regurgitant envelope. There is no comparison study available. Ordering Physician: Jeanna Raphael Referring Physician: Kaya Pinto M.D. Performed By: Marcy Gooden RDCS
== END ==
PROVIDERS: PCP Internal Medicine; Referring Provider Nurse Practitioner; Visit Provider Nurse Practitioner
DX: I51.7 Cardiomegaly (principal)
CPT/HCPCS: 93306

== ENCOUNTER → 2020-04-16 10:21 | Outpatient (CLI) | payer OTHER, SELFPAY ==
[2020-03-06 09:46] VITALS: BMI 30.9
--- NOTE | 2020-04-16 14:22 | PFTCOMP ---
COMPLETE PULMONARY FUNCTION TEST INTERPRETATION Brief HPI: Patient is a 49 year old female, currently under the care of myself, who presents to [facility] for complete pulmonary function tests secondary to diagnosis of dyspnea. Respiratory therapist reports good effort and reproducible results. Interpretation: Forced expiration spirometry shows no large airways obstructive ventilatory defect with an FEV1 of 91% predicted. There is some improvement with bronchodilator, but no significant bronchodilator response by strict ATS criteria. Spirograms are of good quality and plateau slowly, indicating slowly emptying areas of the lungs. The respiratory flow volume loop shows a normal pattern. Lung volumes by body plethysmography show a decreased total lung capacity at 3.96 L, 77% predicted. All other lung volumes are reduced symmetrically. Diffusion capacity by carbon monoxide is elevated at 121% predicted. The airway resistance is normal. No previous pulmonary function tests were available for review. Impression: Mild restrictive ventilatory defect with some improvement following bronchodilators, albeit did not reach significance by ATS criteria.
== END ==
PROVIDERS: PCP Internal Medicine; Referring Provider Internal Medicine Critical Care Medicine; Visit Provider Internal Medicine Critical Care Medicine
DX: R06.00 Dyspnea, unspecified (principal)
CPT/HCPCS: 94060; 94726; 94729

== ENCOUNTER → 2020-05-02 08:09 | Outpatient (CLI) | payer OTHER, SELFPAY ==
[2019-11-01 00:45] VITALS: BMI 32.3
[2020-04-19 13:46] VITALS: BMI 30.1
--- NOTE | 2020-05-02 08:11 | US_ITS ---
STUDY: ABDOMINAL ULTRASOUND - RIGHT UPPER QUADRANT REASON FOR VISIT: Female, 49 years old LIVER CYST TECHNIQUE: Ultrasound evaluation of the right upper quadrant was performed with real-time and static dickens-scale imaging. TECHNICAL QUALITY: Adequate. COMPARISON: None. FINDINGS: Liver: The liver measures 12.4 cm. There is normal echogenicity of the liver. The bile ducts are within normal limits. There is hepatic color flow. The direction of portal flow is hepatopetal. There is a 1.3 cm x 1.3 cm x 1.2 cm cyst in the dome of the right lobe of the liver. Gallbladder: Normal distended gallbladder. The gallbladder wall measures 2.4 mm. There is a negative sonographic Wheeler''s sign. There is no pericholecystic fluid. There are no gallstones. There is a gallbladder polyp measuring 8 mm x 7 mm x 7 mm. Common Bile Duct (C.B.D.): The common bile duct measures 3.7 mm. Pancreas: Normal size of the head, body and tail of the pancreas. There is normal echogenicity of the pancreas. There is no demonstrated pancreatic mass or cyst. Right Kidney: Normal size of the right kidney. The right kidney measures 8.9 cm x 4.2 cm x 4.9 cm. Normal renal cortex. The right cortex measures 1.5 cm. There is no demonstrated renal mass or cyst. There is no right hydronephrosis. US/Liver IMPRESSION: 8 mm x 7 mm x 7 mm gallbladder polyp. Electronically Signed: Jose Juan Cartwright, at 13:02 EDT , Service support ,
== END ==
PROVIDERS: PCP Internal Medicine; Referring Provider Nurse Practitioner; Visit Provider Nurse Practitioner
DX: K76.89 Other specified diseases of liver (principal)
CPT/HCPCS: 76705

== ENCOUNTER → 2020-05-13 15:04 | Outpatient (CLI) | payer OTHER, SELFPAY ==
[2020-04-19 13:46] VITALS: BMI 30.1
--- NOTE | 2020-05-13 15:04 | CT_ITS ---
STUDY: CT CHEST WITHOUT CONTRAST REASON FOR EXAM: Female, 49 years old. Chest pain/pressure RADIATION DOSAGE (If Supplied By Facility): CTDIvol = ( 9.63 ) mGy, DLP = ( 348.81 ) mGycm TECHNIQUE: Transaxial imaging was performed without the administration of intravenous contrast material. Individualized dose optimization techniques were used for this CT. COMPARISON: 05/08/2016 FINDINGS: Previous study showed diffuse groundglass opacifications in both lung pickett which have resolved The lungs are normal. There is no demonstrated pleural abnormality. Normal heart and pericardium. Normal mediastinum. Normal hilar regions. Normal unenhanced pulmonary arteries. Normal aorta arch and descending thoracic aorta. Normal osseous structures. There is no demonstrated abnormality of the visualized upper abdomen. CT/Chest without Contrast IMPRESSION: Normal unenhanced CT Chest examination. Electronically Signed: Ty Chan MD at 15:28 EDT , Service support ,
== END ==
PROVIDERS: PCP Internal Medicine; Referring Provider Nurse Practitioner Acute Care; Visit Provider Nurse Practitioner Acute Care
DX: J18.9 Pneumonia, unspecified organism (principal)
CPT/HCPCS: 71250

== ENCOUNTER 2020-11-26 07:46 | Outpatient (RCR) | payer OTHER, SELFPAY ==
[2020-05-20 07:39] VITALS: BMI 30.1
== END 2020-12-22 23:59 ==
LOC: EMPH 07:46
PROVIDERS: PCP Internal Medicine; Referring Provider Family Medicine Geriatric Medicine; Visit Provider Family Medicine Geriatric Medicine
DX: Z03.818 Encounter for observation for suspected exposure to other biological agents ruled out (principal)
CPT/HCPCS: 87426

== ENCOUNTER 2021-01-28 23:02 | Outpatient (RCR) | payer OTHER, SELFPAY ==
[2020-05-20 07:39] VITALS: BMI 30.1
== END 2021-02-21 23:59 ==
LOC: EMPH 23:02
PROVIDERS: PCP Internal Medicine; Visit Provider Family Medicine Geriatric Medicine
DX: Z03.818 Encounter for observation for suspected exposure to other biological agents ruled out (principal)
CPT/HCPCS: 87426

== ENCOUNTER 2021-04-16 13:25 | Outpatient (RCR) | payer OTHER, SELFPAY ==
[2021-02-04 11:51] VITALS: BMI 31.3
== END 2021-04-23 23:59 ==
LOC: EMPH 13:25
PROVIDERS: PCP Internal Medicine; Visit Provider Family Medicine Geriatric Medicine
DX: Z03.818 Encounter for observation for suspected exposure to other biological agents ruled out (principal)
CPT/HCPCS: 87426

== ENCOUNTER → 2021-10-07 13:44 | Outpatient (CLI) | payer OTHER, SELFPAY ==
--- NOTE | 2021-10-07 13:46 | BI_ITS ---
MAMMOGRAPHY - BILATERAL SCREENING REASON FOR EXAM: Female, 50 years old. Routine annual screening examination. PERTINENT HISTORY: Non-contributory. TECHNIQUE: Digital bilateral breast maribell (3D mammographic acquisition) in the CC and MLO projections. 2-D mediolateral oblique (MLO) and craniocaudad (CC) views of both breasts were obtained. CAD: Full Field Digital Mammography with Computer Added Detection was performed. COMPARISON: Comparison is made with prior examination dated 09/07/2017 and 09/02/2016. FINDINGS: Breast Composition: There are scattered areas of fibroglandular density. There are no dominant masses or suspicious calcifications. No other significant abnormalities are identified. There has been no significant change since the prior study. BI/SCRN MAMM (CAD)W/MARIBELL BILAT IMPRESSION: Stable bilateral screening mammogram. Yearly follow-up mammogram recommended. (A) ASSESSMENT CATEGORY: BIRADS Category 1: Negative. A letter regarding these results will be sent to the patient by the facility within 30 days. Approximately 10% of breast cancers are not detected by mammography. A normal mammogram should not delay biopsy of a clinically suspicious abnormality. [id number] Electronically Signed: Jose Juan Cartwright MD at 14:25 EST , Service support ,
== END ==
PROVIDERS: PCP Internal Medicine; Referring Provider Obstetrics & Gynecology; Visit Provider Obstetrics & Gynecology
DX: Z12.31 Encounter for screening mammogram for malignant neoplasm of breast (principal)
CPT/HCPCS: 77063; 77067

== ENCOUNTER 2021-11-05 23:13 | Outpatient (RCR) | payer OTHER, SELFPAY | END 2021-11-24 23:59 | LOC: EMPH 23:13 | PROVIDERS: PCP Internal Medicine; Visit Provider Family Medicine Geriatric Medicine | DX: Z03.818 Encounter for observation for suspected exposure to other biological agents ruled out (principal) | CPT/HCPCS: 87426 ==

== ENCOUNTER 2021-11-17 07:22 | Day surgery (SDC) | payer OTHER, SELFPAY ==
[2021-11-17] VITALS (8 sets, daily range): BP systolic 100–124; BP diastolic 61–75; PULSE 62–70; RESP 16; TEMP 35.9–36; O2SAT 100; BMI 31.8
--- NOTE | 2021-11-17 | IMM_PTH ---
PATIENT: KARTHIKEYAN BECKFORD LOC: EN U#:[id number] AGE/SX: 50/F ROOM: RE11/17/[address]: Dr. Damien Han DO : 1970 BED: DIS: 11/17/2021 SPEC #: [id number] RECD: 11/20/21 13:23 STATUS: AGAPITO REWeston #: [id number] TAMIE: 11/17/21 00:[address]: Damien Han DEPT: IMMUNOHISTOCHEMISTRY RECD BY: Cici Evans ENTERED: 11/20/21 13:24 SP TYPE: IMMUNO OTHR DR: Dr. Kaya Pinto, Tissues: A - Esophagus, NOS Procedures: P53 (initial) KI-67 (add) PHYSICIAN & INSTITUTION [place] [id number] SPECIMEN INFORMATION: Tissue Source: A ? Distal esophagus Clinical Info: GERD, colon screening Specimen Number: [id number] CPT code: 76235, 16588 METHODOLOGY: Deparaffinized sections of prefer/formalin-fixed tissue or PAP/DQ stained slides are incubated with monoclonal/polyclonal antibodies/oligonucleotide probes. Localization is made via biotin free immunoperoxidase method. Appropriate controls are performed and reacted as expected. Results on target cell population are indicated in the following table: RESULTS: ANTIBODY / CLONE RESULT Block A P53 (DO-7) negative Ki-67 (30-9) positive, low These tests were developed and their performance characteristics determined by [facility]. They may not have been cleared or approved by the U.S. Food and Drug Administration. The FDA has determined that such clearance or approval is not necessary. The above immunohistochemical/dualISH markers are ordered and reviewed by the Pathologist. INTERPRETATION: A. Distal esophagus, biopsy: No evidence of dysplasia. AM:darrick 11/21/2021
[2021-11-17] MEDS: Lactated Ringers 1,000 ML 30 ML IV (07:54)
--- NOTE | 2021-11-17 08:30 | EGD_PTH ---
PATIENT: KARTHIKEYAN BECKFORD LOC: EN U#:[id number] AGE/SX: 50/F ROOM: RE11/17/[address]: Dr. Damien Han DO : 1970 BED: DIS: 11/17/2021 SPEC #: [id number] RECD: 11/17/21 12:31 STATUS: AGAPITO JESSICA #: [id number] TAMIE: 11/17/21 08:[address]: Damien Han DEPT: SURGICAL PATHOLOGY RECD BY: Radha Antonio ENTERED: 11/17/21 13:11 SP TYPE: EGD BIOPSY JEWELL DR: Dr. Kaya Pinto DO Tissues: A - Esophagus, NOS B - Cecum, NOS Procedures: Special Stain Group II Surgery Specimen Level IV Alcian Blue/PAS (control) HEADER OPERATION: Colonoscopy with biopsy, EGD with biopsy ([facility] [place]) PRE-OP DIAGNOSIS: GERD, colon screening TISSUE SUBMITTED: A ? Distal esophagus biopsy, B ? Cecum biopsy MICROSCOPIC DIAGNOSIS A. Distal esophagus, biopsy: Gastroesophageal junctional mucosa with mild chronic inflammation. 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 No evidence of dysplasia. Changes of reflux. See comment. B. Cecum, biopsy: Tubular adenoma. AM:darrick 11/18/2021 COMMENT A. Alcian blue/PAS stain with matched control supports the above diagnosis. Immunohistochemistry ([id number]) for P53 and Ki-67 will be performed and results will be reported separately. MICROSCOPIC DESCRIPTION Slides are reviewed. GROSS DESCRIPTION A - Received in fixative is one container labeled with the patient's name and designated distal esophagus biopsy. The specimen consists of multiple irregular fragments of light verdugo soft tissue that in aggregate measure 0.8 x 0.5 x 0.1 cm. The specimen is totally submitted in one cassette. B - Received in fixative is one container labeled with the patient's name and designated cecum biopsy. The specimen consists of one irregular fragment of light verdugo soft tissue that measures 0.5 x 0.3 x 0.1 cm. The specimen is totally submitted in one cassette. / AM:darrick 11/17/2021 TC:3 CPT: 79473 x2, 15267
--- NOTE | 2021-11-17 09:16 | PCM.HP.BLA ---
History and Physical Date of Admission: 11/17/21 50 F who presents to the office today for evaluation of GERD and a screening colonoscopy. She has had gastroesophageal reflux disease for 20 years. She is only been on AcipHex. She has tried diet therapy. She did have a problem with iron deficiency anemia, but this was thought to be secondary to postmenopausal bleeding. She has been seeing gastroentrologist in another office who prescribed aciphex 20mg QD for her reflux. Admits to occasional heartburn that is relatable to something she ate. Denies bloating and gas. If she misses a dose of medication she has a lot of symptoms. She was getting EGD performed every several years for evaluation. Denies diagnosis of Lloyd's. Last EGD performed approximately 5 years ago. Denies history of colonoscopy. She would like to have colonscopy screening performed. In the last six months she has had a change in bowel habits from diarrhea to constipation that she feels is related to Vibrid; she had stopped taking this for a period of time and then restarted. She uses Miralax PRN to assist with this. Chest CT 05/13/20 found a normal unenhanced CT study. Liver US 11/02/19 found liver measuring 12.4cm with a cyst in the dome of the right lobe. ROS Const Constitutional: Positive for fatigue and weight change Eyes Eyes: Positive for blurry vision Gastro GI: Positive for constipation Musc Musculoskeletal: Positive for stiffness Psych Psychiatric: Positive for anxiety and Positive for depression Endo Endocrine: Positive for fatigue and weight change Exam Const General: cooperative and comfortable Nutritional Appearance: average body habitus and well nourished [facility] Head: normal to inspection Ears: hearing grossly normal bilaterally Nose: external nose normal Face and sinus: normal facial exam Mouth: oral mucosae normal Throat: posterior oropharynx normal Eyes General: appearance normal, both eyes and all related structures Neck Neck: normal visual inspection Chest Chest palpation & inspection: normal inspection of the chest and normal palpation of entire chest wall Resp Effort & Inspection: normal respiratory effort Auscultation: Bilateral: Clear to Auscultation Cardio Palpation: normal PMI Rate: regular rate Rhythm: regular rhythm GI Inspection: normal to inspection Auscultation: normal bowel sounds Percussion: normal to percussion Palpation: no hepatosplenomegaly Skin General: no rashes or lesions noted Neuro General: patient alert Extrem General: normal to inspection Psych Affect: normal affect Quality Reporting Tobacco Screening ([facility] 138) Smoking Status: Former smoker Assessment and Plan Assessment and Plan (1) GERD (gastroesophageal reflux disease): Status: Acute Plan - Dr. Quezada Friend, DO: She is controlled on AcipHex will not make any changes until we perform endoscopy. All questions regarding side effects, short-term and long-term use were answered about the particular medicine. I told her I have no recommendations pending on her upper endoscopy. (2) Encounter for screening colonoscopy: Status: Acute Plan - Dr. Quezada Friend, DO: She will undergo colonoscopy. She was explained alternatives, risks, benefits including not withstanding bleeding, infection, sepsis, perforation, need for emergent . ASA of 1. I have re-examined the patient. There are no clinical changes since date of exam.
--- NOTE | 2021-11-17 09:37 | OP.EGD_ITS ---
Patient Name: Isabela Goldman Procedure Date: 11/17/2021 9:26 AM Date of : 1970 Age: 50 Procedure: Upper GI endoscopy Indications: Heartburn Providers: Damien Han DO Medicines: See the Anesthesia note for documentation of the administered medications Patient Profile: This is a 50 year old female. Refer to note in patient chart for documentation of history and physical. Patient has symptoms of chronic heartburn. Complications: No immediate complications. Procedure: Pre-Anesthesia Assessment: - Prior to the procedure, a History and Physical was performed, and patient medications and allergies were reviewed. The risks and benefits of the procedure and the sedation options and risks were discussed with the patient. All questions were answered and informed consent was obtained. Patient identification and proposed procedure were verified by the physician in the pre-procedure area. Mental Status Examination: alert and oriented. Airway Examination: normal oropharyngeal airway and neck mobility. Respiratory Examination: clear to auscultation. CV Examination: normal. Prophylactic Antibiotics: The patient does not require prophylactic antibiotics. Prior Anticoagulants: The patient has taken no previous anticoagulant or antiplatelet agents. ASA Grade Assessment: II - A patient with mild systemic disease. After reviewing the risks and benefits, the patient was deemed in satisfactory condition to undergo the procedure. The anesthesia plan was to use moderate sedation / analgesia (conscious sedation). Immediately prior to administration of medications, the patient was re-assessed for adequacy to receive sedatives. The heart rate, respiratory rate, oxygen saturations, blood pressure, adequacy of pulmonary ventilation, and response to care were monitored throughout the procedure. The physical status of the patient was re-assessed after the procedure. After obtaining informed consent, the endoscope was passed under direct vision. Throughout the procedure, the patient's blood pressure, pulse, and oxygen saturations were monitored continuously. The Endoscope was introduced through the mouth, and advanced to the second part of duodenum. The upper GI endoscopy was accomplished without difficulty. The patient tolerated the procedure well. Moderate Sedation: Moderate (conscious) sedation was administered by the endoscopy nurse and supervised by the endoscopist. The patient's oxygen saturation, heart rate, blood pressure and response to care were monitored. Total physician intraservice time was 15 minutes. Scope In: 9:30:55 AM Scope Out: 9:34:51 AM Total Procedure Duration Time 0 hours 3 minutes 56 seconds Findings: LA Grade A (one or more mucosal breaks less than 5 mm, not extending between tops of 2 mucosal folds) esophagitis with no bleeding was found 34 to 35 cm from the incisors. Biopsies were taken with a cold forceps for histology. Verification of patient identification for the specimen was done. Estimated blood loss was minimal. A small hiatal hernia was present. Multiple 5 mm sessile polyps with no bleeding and no stigmata of recent bleeding were found in the gastric body. The second portion of the duodenum was normal. Impression: - LA Grade A reflux esophagitis. Biopsied. - Small hiatal hernia. - Multiple gastric polyps. - Normal second portion of the duodenum. Recommendation: - Discharge patient to home. - Resume previous diet. - Continue present medications. - Await pathology results. - Repeat upper endoscopy. - Return to GI office. Procedure Code(s): --- Professional --- 61180, Esophagogastroduodenoscopy, flexible, transoral; with biopsy, single or multiple 54253, 59, Moderate sedation services provided by the same physician or other qualified health health care consultant performing the diagnostic or therapeutic service that the sedation supports, requiring the presence of an independent trained observer to assist in the monitoring of the patient's level of consciousness and physiological status; initial 15 minutes of intraservice time, patient age 5 years or older CPT copyright 2017 [employer]. All rights reserved. The codes documented in this report are preliminary and upon refinery operator coking review may be revised to meet current compliance requirements. Damien Han DO 11/17/2021 9:37:31 AM This report has been signed electronically. Number of Addenda: 1 Note Initiated On: 11/17/2021 9:26 AM Addendum Number: 1 Addendum Date: 07/02/2022 6:22:29 AM MAC was used instead of moderate sedation for the patient. Damien Han DO 07/02/2022 6:22:33 AM This report has been signed electronically.
--- NOTE | 2021-11-17 09:38 | OP.CCLET_ITS ---
07/02/2022 Kaya Pinto [address] [place] [address] Re : Upper GI endoscopy procedure for Isabela Mcgrawasure Dear Dr. Pinto This procedure was performed on Wednesday, November 17, 2021. My impressions and recommendations are as follows: Impressions : - LA Grade A reflux esophagitis. Biopsied. - Small hiatal hernia. - Multiple gastric polyps. - Normal second portion of the duodenum. Recommendations : - Discharge patient to home. - Resume previous diet. - Continue present medications. - Await pathology results. - Repeat upper endoscopy. - Return to GI office. My findings are described in the full procedure note, which is enclosed. If I can be of further assistance, please feel free to contact me at . Sincerely, Damien Han, 11/17/2021 9:37:31 AM This report has been signed electronically.
--- NOTE | 2021-11-17 09:57 | OP.COLON_ITS ---
Patient Name: Isabela Goldman Procedure Date: 11/17/2021 9:39 AM Date of : 1970 Age: 50 Procedure: Colonoscopy Indications: Screening for colorectal malignant neoplasm Providers: Damien Han DO Medicines: See the Anesthesia note for documentation of the administered medications Patient Profile: This is a 50 year old female. Refer to note in patient chart for documentation of history and physical. Patient has symptoms of chronic heartburn. Last Colonoscopy: none. The patient's first colonoscopy is today. Complications: No immediate complications. Procedure: Pre-Anesthesia Assessment: - Prior to the procedure, a History and Physical was performed, and patient medications and allergies were reviewed. The risks and benefits of the procedure and the sedation options and risks were discussed with the patient. All questions were answered and informed consent was obtained. Patient identification and proposed procedure were verified by the physician in the pre-procedure area. Mental Status Examination: alert and oriented. Airway Examination: normal oropharyngeal airway and neck mobility. Respiratory Examination: clear to auscultation. CV Examination: normal. Prophylactic Antibiotics: The patient does not require prophylactic antibiotics. Prior Anticoagulants: The patient has taken no previous anticoagulant or antiplatelet agents. ASA Grade Assessment: II - A patient with mild systemic disease. After reviewing the risks and benefits, the patient was deemed in satisfactory condition to undergo the procedure. The anesthesia plan was to use moderate sedation / analgesia (conscious sedation). Immediately prior to administration of medications, the patient was re-assessed for adequacy to receive sedatives. The heart rate, respiratory rate, oxygen saturations, blood pressure, adequacy of pulmonary ventilation, and response to care were monitored throughout the procedure. The physical status of the patient was re-assessed after the procedure. After I obtained informed consent, the scope was passed under direct vision. Throughout the procedure, the patient's blood pressure, pulse, and oxygen saturations were monitored continuously. The pediatric colonoscope was introduced through the anus and advanced to the cecum, identified by appendiceal orifice and ileocecal valve. The ileocecal valve, appendiceal orifice, and rectum were photographed. Moderate Sedation: Moderate (conscious) sedation was administered by the endoscopy nurse and supervised by the endoscopist. The patient's oxygen saturation, heart rate, blood pressure and response to care were monitored. Total physician intraservice time was 15 minutes. Scope In: 9:41:29 AM Scope Withdrawal Time 0 hours 9 minutes 11 seconds Scope Out: 9:52:19 AM Total Procedure Duration Time 0 hours 10 minutes 50 seconds Findings: The perianal and digital rectal examinations were normal. A 5 mm polyp was found in the cecum. The polyp was sessile. The polyp was removed with a hot snare. Resection and retrieval were complete. Verification of patient identification for the specimen was done. Estimated blood loss was minimal. Impression: - One 5 mm polyp in the cecum, removed with a hot snare. Resected and retrieved. Recommendation: - Repeat colonoscopy in 5 years for surveillance based on pathology results. - Return to GI office. - Continue present medications. Procedure Code(s): --- Professional --- 93427, Colonoscopy, flexible; with removal of tumor(s), polyp(s), or other lesion(s) by snare technique 14965, 59, Moderate sedation services provided by the same physician or other qualified health long term care phlebotomist performing the diagnostic or therapeutic service that the sedation supports, requiring the presence of an independent trained observer to assist in the monitoring of the patient's level of consciousness and physiological status; initial 15 minutes of intraservice time, patient age 5 years or older CPT copyright 2017 [employer]. All rights reserved. The codes documented in this report are preliminary and upon certified coder review may be revised to meet current compliance requirements. Damien Han DO 11/17/2021 9:57:14 AM This report has been signed electronically. Number of Addenda: 1 Note Initiated On: 11/17/2021 9:39 AM Addendum Number: 1 Addendum Date: 07/02/2022 6:22:42 AM MAC was used instead of moderate sedation for the patient. Damien aHn DO 07/02/2022 6:22:48 AM This report has been signed electronically.
--- NOTE | 2021-11-17 09:58 | OP.CCLET_ITS ---
07/02/2022 Kaya Pinto [address] [place] [address] Re : Colonoscopy procedure for Isabela Mcgrawasure Dear Dr. Pinto This procedure was performed on Wednesday, November 17, 2021. My impressions and recommendations are as follows: Impressions : - One 5 mm polyp in the cecum, removed with a hot snare. Resected and retrieved. Recommendations : - Repeat colonoscopy in 5 years for surveillance based on pathology results. - Return to GI office. - Continue present medications. My findings are described in the full procedure note, which is enclosed. If I can be of further assistance, please feel free to contact me at . Sincerely, Damien Han, 11/17/2021 9:57:14 AM This report has been signed electronically.
== END 2021-11-17 23:59 | disposition home or self-care (01) ==
LOC: EN 07:24 → AC 07:25
PROVIDERS: PCP Internal Medicine; Referring Provider Internal Medicine; Visit Provider Internal Medicine Gastroenterology
PROC: 0DJD8ZZ Inspection of Lower Intestinal Tract, Via Natural or Artificial Opening Endoscopic (ICD-10-PCS; CPT 45378; principal; 2021-11-17 08:25)
DX: Z12.11 Encounter for screening for malignant neoplasm of colon (principal); K44.9 Diaphragmatic hernia without obstruction or gangrene; D12.0 Benign neoplasm of cecum; K31.7 Polyp of stomach and duodenum; K21.00 Gastro-esophageal reflux disease with esophagitis, without bleeding; Z87.891 Personal history of nicotine dependence; Z87.442 Personal history of urinary calculi; E78.5 Hyperlipidemia, unspecified; Z86.711 Personal history of pulmonary embolism; Z87.01 Personal history of pneumonia (recurrent); F32.A Depression, unspecified; Z79.899 Other long term (current) drug therapy; F41.9 Anxiety disorder, unspecified; Z87.19 Personal history of other diseases of the digestive system
CPT/HCPCS: 45385; 43239; 88305; 88313; 88341; 88342; J7120; J2405

== ENCOUNTER → 2022-07-14 | Outpatient (CLI) | payer OTHER, SELFPAY ==
[2022-07-14 16:35] LABS: Absolute Lymphocyte Count 1.61 X10^3/uL (0.83-4.51); Absolute Neutrophil Count 5.4 X10^3/uL (2.0-7.7); Basophil# 0.04 X10^3/uL; Basophil% 0.5 % (0-1); Eosinophil# 0.09 X10^3/uL; Eosinophils% 1.2 % (0-5); Hematocrit 45.2 % (37-47); Hemoglobin 14.4 g/dL (12.0-15.0); Lymphocyte # 1.61 X10^3/ul (0.83-4.51); Lymphocyte % 21.1 % (19-41); Mean Corp Hgb Conc 31.9 g/dL (32-36); Mean Corpuscular Hgb 30.1 pg (27.0-32.0); Mean Corpuscular Volume 94.4 fL (81-99); Monocyte% 6.6 % (0-10); NRBC Flagged by Analyzer 0 % (0-5); Neutrophil # 5.36 X10^3/uL (2.7-7.7); Neutrophil % 70.3 % (47-70); Platelet Count 168 K/mm3 (150-450); RBC Distribution Width CV 12.2 % (11.6-14.6); RBC Distribution Width SD 42.4 fl (35.1-43.9); Red Blood Count 4.79 M/mm3 (4.2-5.4); White Blood Count 7.6 K/mm3 (4.4-11.0)
[2022-07-14 16:44] LABS: Erythrocyte Sedimentation Rate 9 mm/hr (0-30)
[2022-07-14 18:04] LABS: ALB/GLOB Ratio 1.1 RATIO (0.9-2.4); AST(SGOT) 16 U/L (15-37); Alanine Aminotransfer ALT/SGPT 19 U/L (13-56); Albumin, Serum 3.7 g/dL (3.2-5.0); Alkaline Phosphatase 105 U/L (45-117); Anion Gap 5 (5-15); BUN 14 mg/dL (7-18); BUN/Creat Ratio 15.5 RATIO (10-20); CRP < 2.90 mg/L (0.0-3.0); Calcium,Total 9.4 mg/dL (8.5-10.1); Chloride 111 mmol/L (98-107); EST Glomerular Filtration Rate 69 mL/min (>60); Est Glom Filt Rate - Afr Amer 84 mL/min (>60); Globulin 3.4 g/dL (2.2-4.2); Glucose 95 mg/dL (74-106); LDH 205 U/L (84-246); Potassium 3.6 mmol/L (3.5-5.1); Protein, Total 7.1 g/dL (6.4-8.2); Sodium Level 143 mmol/L (136-145)
[2022-07-16 15:08] LABS: Endomysial Antibody IgA Negative (Negative)
[2022-07-16 16:09] LABS: Anti-Centromere B Ab <0.2 AI (0.0-0.9); Anti-Chromatin <0.2 AI (0.0-0.9); Anti-Jo <0.2 AI (0.0-0.9); Anti-Scleroderma-70 AB <0.2 AI (0.0-0.9); RNP Ab <0.2 AI (0.0-0.9); SJOGREN'S Anti-SS-A test < 0.2 AI (0.0-0.9); SJOGREN'S Anti-SS-B test < 0.2 AI (0.0-0.9); Smith Ab <0.2 AI (0.0-0.9)
[2022-07-17 19:27] LABS: Immunoglobulin A 196 mg/dL (87-352); t-Transglutaminase IgA <2 U/mL (0-3)
[2022-07-17 19:31] LABS: Anti-dsDNA Ab <1 IU/mL (0-9)
[2022-07-21 18:07] LABS: Albumin 3.8 g/dL (2.9-4.4); Alpha-1-Globulins 0.2 g/dL (0.0-0.4); Alpha-2-Globulins 0.7 g/dL (0.4-1.0); Cytoplasmic Ab (C-ANCA) <1:20 titer (Neg:<1:20); Gamma Globulin 0.9 g/dL (0.4-1.8); Immunoglobulin A 199 mg/dL (87-352); Immunoglobulin E 11 IU/mL (6-495); Immunoglobulin G 794 mg/dL (586-1602); Immunoglobulin M 144 mg/dL (26-217); PROEL- TOTAL PROTEIN 6.8 g/dL (6.0-8.5)
[2022-07-22 11:03] LABS: Gastrin, Serum 112 pg/mL (0-115); Perinuclear Ab (P-ANCA) <1:20 titer (Neg:<1:20)
== END | disposition home or self-care (01) ==
PROVIDERS: PCP Internal Medicine; Visit Provider Nurse Practitioner Adult Health
DX: R19.7 Diarrhea, unspecified (principal); Z83.79 Family history of other diseases of the digestive system
CPT/HCPCS: 36415; 80053; 82784; 82785; 82941; 83516; 83615; 84165; 85025; 85652; 86140; 86225; 86235; 86255; 86256; 86334

== ENCOUNTER → 2022-07-17 | Outpatient (CLI) | payer OTHER, SELFPAY ==
--- NOTE | 2022-07-17 13:45 | MRI_ITS ---
STUDY: MRI RIGHT FOREFOOT WITHOUT CONTRAST REASON FOR EXAM: Female, 51 years old. INTERMETATARSAL NEUROMA TECHNIQUE: Standardized fat and water weighted pulse sequences were obtained in all 3 orthogonal planes. COMPARISON: None. FINDINGS: There is degenerative arthrosis of the metatarsophalangeal joint of the hallux. Normal tibial and fibular sesamoids, with normal sesamoids-first metatarsal articulations. Normal interphalangeal joint of the hallux. Normal proximal and distal phalanges of the great toe. Normal medial and lateral heads of the flexor hallucis brevis tendons. Normal flexor and extensor hallucis longus tendons. Normal second through fifth metatarsophalangeal (MTP) joints. There is joint space narrowing with effusion of the second proximal interphalangeal joint Normal proximal, middle and distal phalanges of the second through fifth toes. Normal first through fourth intermetatarsal spaces. Normal flexor and extensor tendons of the second through fifth toes. There is subchondral edema of the head of the first and second metatarsals.. Normal intrinsic muscles of the forefoot. There is intermetatarsal bursitis of the first, second, and third interspaces. 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 Intermetatarsal bursitis of the first, second and third interspaces. Arthritic change at the first MTP and second proximal interphalangeal joints. Subchondral edema at the first and second metatarsal heads. Electronically Signed: Mike Ho MD at 15:59 EDT ,
[2022-07-24 09:01] LABS: Calprotectin, Stool 94 ug/g (0-120)
== END | disposition home or self-care (01) ==
LOC: MRI 13:18
PROVIDERS: Nurse Practitioner Adult Health; PCP Internal Medicine; Referring Provider Podiatrist; Visit Provider Podiatrist
DX: R19.7 Diarrhea, unspecified (principal); G57.81 Other specified mononeuropathies of right lower limb
CPT/HCPCS: 73718; 83630; 83993; 87493; 87506

== ENCOUNTER → 2023-03-11 | Outpatient (CLI) | payer SELFPAY ==
--- NOTE | 2023-03-11 15:19 | CT_ITS ---
INDICATION: FAM HX OF ATHEROSCLEROSIS EXAMINATION: CT CHEST WITHOUT CONTRAST - CT Chest W/O Contrast Injection TECHNIQUE: Helically acquired images were obtained of the chest. A radiation dose optimization technique was used for this scan. IV Contrast dosage and agent: None. Cardiac over read examination. COMPARISON: None. FINDINGS: LUNGS, PLEURA AND LARGE AIRWAYS: No masses, consolidation, or edema. No pleural effusion or thickening. No pneumothorax. THYROID: No thyroid lesions. HEART AND PERICARDIUM: Heart size is normal. No pericardial effusion. CORONARY ARTERIES: Coronary artery calcification is not seen. VESSELS: Thoracic aorta is not dilated. MEDIASTINUM AND HENRIQUE: No mediastinal or hilar adenopathy. Esophagus is unremarkable. No hiatal hernia. UPPER ABDOMEN: No acute pathology. BONES: No suspicious lytic or blastic abnormality. CT/Limited Chest CT Cardiac Only IMPRESSION: Negative CT chest without contrast. Electronically Signed: Jose Juan Cartwright MD at 10:41 EDT ,
--- NOTE | 2023-03-11 17:09 | CA.SCORE ---
Calcium Scoring Date of Study:: 03/11/23 Indications Indications: Family history of atherosclerotic disease Coronary Calcium Scoring: High-resolution Computed Tomographic imaging of the chest was performed on [03/11/23 ], with particular attention paid to the coronary arteries. Images from the examination were analyzed for the presence and extent of coronary artery calcification , using coronary calcium quantification software. The patient tolerated the procedure well and there were no complications. The results of the coronary calcification analysis are provided below. Findings Coronary Artery Left Main (LM): 0 Left Anterior Descending (LAD): 0 Left Circumflex (LCX): 0 Right Coronary Artery (RCA): 0 Total Agatston Score: 0 Percentile Rankin% Calcium Scoring Interpretation: Different methods to categorize the overall amount of coronary plaque. Overall amount CAC SIS Visual of coronary plaque P1 Mild -100 <2 1-2 vessels with mild amount of plaque P2 Moderate 101-300 3-4 1-2 vessels with moderate amount, 3 vessels with mild amount of plaque P3 Severe 301-999 5-7 3 vessels with moderate amount, 1 vessel with severe amount of plaque P4 Extensive >1000 >8 2-3 vessels with severe amount of plaque Conclusion: No significant atherosclerotic plaque noted.
== END | disposition home or self-care (01) ==
PROVIDERS: PCP Internal Medicine; Referring Provider Internal Medicine; Visit Provider Internal Medicine
DX: Z13.6 Encounter for screening for cardiovascular disorders (principal); Z82.49 Family history of ischemic heart disease and other diseases of the circulatory system
CPT/HCPCS: 75571; 76380

== ENCOUNTER → 2023-05-05 | Outpatient (CLI) | payer OTHER, SELFPAY ==
--- NOTE | 2023-05-05 08:12 | BI_ITS ---
MAMMOGRAPHY - BILATERAL SCREENING REASON FOR EXAM: Female, 52 years old. Routine annual screening examination. PERTINENT HISTORY: Non-contributory. TECHNIQUE: Digital bilateral breast maribell (3D mammographic acquisition) in the CC and MLO projections. 2-D mediolateral oblique (MLO) and craniocaudad (CC) views of both breasts were obtained. CAD: Full Field Digital Mammography with Computer Added Detection was performed. COMPARISON: Comparison is made with prior study October 07, 2021 and September 07, 2017. FINDINGS: Breast Composition: There are scattered areas of fibroglandular density. There are no dominant masses or suspicious calcifications. Stable small benign appearing bilateral axillary lymph nodes. No other significant abnormalities are identified. There has been no significant change since the prior study. BI/SCRN MAMM (CAD)W/MARIBELL BILAT IMPRESSION: Stable bilateral screening mammogram. Yearly follow-up mammogram recommended. (A) ASSESSMENT CATEGORY: BIRADS Category 2: Benign. A letter regarding these results will be sent to the patient by the facility within 30 days. Approximately 10% of breast cancers are not detected by mammography. A normal mammogram should not delay biopsy of a clinically suspicious abnormality. [id number] Electronically Signed: Jose Juan Cartwright MD at 9:28 EDT ,
== END | disposition home or self-care (01) ==
LOC: OPBI 08:11
PROVIDERS: PCP Internal Medicine; Referring Provider Internal Medicine; Visit Provider Internal Medicine
DX: Z12.31 Encounter for screening mammogram for malignant neoplasm of breast (principal)
CPT/HCPCS: 77063; 77067

== ENCOUNTER → 2023-05-12 | Outpatient (CLI) | payer OTHER, SELFPAY ==
--- NOTE | 2023-05-12 14:02 | VDLE_ITS ---
Reason For Study: Venous Insufficiency RIGHT LEFT CFV is compressible, spontaneous, phasic, CFV is compressible, spontaneous, phasic, competent and demonstrates normal competent, and demonstrates normal augmentation. augmentation. FV is compressible, spontaneous, phasic, FV is compressible, spontaneous, phasic, competent and demonstrates normal competent and demonstrates normal augmentation. augmentation. POP V is compressible, spontaneous, phasic, POP V is compressible, spontaneous, phasic, competent and demonstrates normal competent and demonstrates normal augmentation. augmentation. T/P Trunk is compressible. T/P Trunk is compressible. PTV is compressible. PTV is compressible. RT PerV is compressible. LT PerV is compressible. SFJ is competent and measures 0.51 x 0.56 cm. SFJ is competent and measures 0.63 x 0.64 cm. GSV proximal thigh measures 0.27 x 0.25 cm. GSV proximal thigh measures 0.40 x 0.37 cm. GSV at knee measures 0.27 x 0.28 cm. GSV at knee measures 0.25 x 0.26 cm. GSV above knee is INCOMPETENT for greater GSV is competent throughout. than 0.5 seconds. SSV at junction is competent and measures GSV below knee is competent. 0.23 x 0.24 cm. SSV at junction is competent and measures 0.15 x 0.19 cm. Procedure Exam performed in department. The exam was diagnostic. VL/Venous Duplex US - Ruben Extrem Interpretation Summary Deep veins of the lower extremities are bilaterally patent and compressible seg mentally. There is no evidence of deep vein thrombosis on either side. Valvular competence appears in tact within the proximal deep venous systems bilaterally. The great saphenous veins appear bila terally patent and compressible segmentally. Sapheno-femoral junctions are bilaterally competent . The right great saphenous vein appears incompetent above the knee. The right great saphenous ve in appears competent below the knee. The left great saphenous vein appears segmentally competent. Sm all saphenous veins are patent and competent bilaterally. Ordering Physician: Jose Garcia Referring Physician: Kaya Pinto M.D. Performed By: Tommy You Flaquito
== END | disposition home or self-care (01) ==
LOC: CVS 13:57
PROVIDERS: PCP Internal Medicine; Referring Provider Surgery; Visit Provider Surgery
DX: I87.2 Venous insufficiency (chronic) (peripheral) (principal)
CPT/HCPCS: 93970

== ENCOUNTER → 2023-07-22 | Outpatient (CLI) | payer OTHER, SELFPAY ==
[2023-07-24 20:09] LABS: Gastrin, Serum 88 pg/mL (0-115)
== END | disposition home or self-care (01) ==
LOC: LAB 09:01
PROVIDERS: PCP Internal Medicine; Referring Provider Internal Medicine Gastroenterology; Visit Provider Internal Medicine Gastroenterology
DX: D12.6 Benign neoplasm of colon, unspecified (principal)
CPT/HCPCS: 36415; 82941

== ENCOUNTER → 2023-09-24 | Outpatient (CLI) | payer OTHER, SELFPAY ==
[2023-09-24 17:09] LABS: Hematocrit 46.7 % (37-47); Hemoglobin 14.8 g/dL (12.0-15.0); Mean Corp Hgb Conc 31.7 g/dL (32-36); Mean Corpuscular Hgb 29.9 pg (27.0-32.0); Mean Corpuscular Volume 94.3 fL (81-99); Mean Platelet Vol. 11.3 fl (6.2-12.0); Platelet Count 179 K/mm3 (150-450); RBC Distribution Width CV 12.1 % (11.6-14.6); RBC Distribution Width SD 42.5 fl (35.1-43.9); Red Blood Count 4.95 M/mm3 (4.2-5.4); White Blood Count 11.7 K/mm3 (4.4-11.0)
[2023-09-24 17:20] LABS: Anion Gap 2 (5-15); BUN 12 mg/dL (7-18); BUN/Creat Ratio 11.1 RATIO (10-20); Calcium,Total 9.5 mg/dL (8.5-10.1); Chloride 108 mmol/L (98-107); Creatinine, Serum 1.08 mg/dL (0.55-1.02); EST Glomerular Filtration Rate 56 mL/min (>60); Est Glom Filt Rate - Afr Amer 68 mL/min (>60); Glucose 111 mg/dL (74-106); Potassium 4.4 mmol/L (3.5-5.1); Sodium Level 138 mmol/L (136-145)
== END | disposition home or self-care (01) ==
LOC: LAB 16:44
PROVIDERS: PCP Internal Medicine; Referring Provider Plastic Surgery; Visit Provider Plastic Surgery
DX: Z01.818 Encounter for other preprocedural examination (principal)
CPT/HCPCS: 36415; 80048; 85027

== ENCOUNTER 2023-10-08 05:58 | Day surgery (SDC) | payer OTHER, SELFPAY ==
[2023-10-08] VITALS (7 sets, daily range): BP systolic 102–128; BP diastolic 57–75; PULSE 42–87; RESP 16–18; TEMP 36.3–36.8; O2SAT 99–100; BMI 30.4
[2023-10-08] MEDS: Lactated Ringers 1,000 ML 15 ML IV (06:42)
--- NOTE | 2023-10-08 07:21 | PCM.HP.BLA ---
History and Physical Date of Admission: 10/08/23 The patient is a [place] and there are no changes from the H&P dated 09/22/2023. Informed consent was obtained. Patient is for bilateral breast reduction. Assessment & Plan Assessment/Plan (1) Macromastia: (2) Chronic neck pain: PLAN: Plan Patient for bilateral breast reduction
[2023-10-08] MEDS: Cefazolin 2 GM in 0.9% Normal Saline (100mL Bag) 100 ML IV (07:29)
--- NOTE | 2023-10-08 07:30 | BR_PTH ---
PATIENT: KARTHIKEYAN BECKFORD LOC: [facility] [place] U#:[id number] AGE/SX: 52/F ROOM: RE10/08/[address]: Dr. Telma Hoffmann MD : 1970 BED: DIS: 10/08/2023 SPEC #: [id number] RECD: 10/08/23 13:26 STATUS: AGAPITO REWeston #: [id number] TAMIE: 10/08/23 07:[address]: Telma Hoffmann DEPT: SURGICAL PATHOLOGY RECD BY: Radha Antonio ENTERED: 10/08/23 13:50 SP TYPE: MAMOPLASTY OTHR DR: Dr. Kaya Pinto DO Tissues: A - Right breast, NOS B - Left breast, NOS Procedures: Surgery Specimen Level IV HEADER OPERATION: Breast reduction PRE-OP DIAGNOSIS: Macromastia, chronic neck pain TISSUE SUBMITTED: A - Right breast tissue (316 gm), B - Left breast tissue (318 gm) MICROSCOPIC DIAGNOSIS A. Right breast, reduction mammoplasty: Mild fibrocystic change. Skin with no pathologic change. B. Left breast, reduction mammoplasty: Mild fibrocystic change. Skin with no pathologic change. Focal banal microcalcifications. AM:darrick 10/13/2023 MICROSCOPIC DESCRIPTION Slides are reviewed. GROSS DESCRIPTION A - Received in fixative is one container labeled with the patient's name and designated right breast tissue. The specimen consists of multiple pieces of fibroadipose tissue with a few of the pieces showing verdugo-white skin, weighing in aggregate 316 gm (weighed in OR) and measuring in aggregate 17.0 x 17.0 x 5.0 cm. No skin lesion is identified. Sections reveal yellow adipose cut surfaces mixed with scant fibrous areas. No mass lesion is identified. Capital [employer] sections are submitted in six cassettes. Cassette 1 contains the skin piece. Sections are submitted after additional fixation. B - Received in fixative is one container labeled with the patient's name and designated left breast tissue. The specimen consists of multiple pieces of fibroadipose tissue with a few of the pieces showing verdugo-white skin, weighing in aggregate 318 gm (weighed in OR) and measuring in aggregate 17.0 x 14.0 x 5.0 cm. No skin lesion is identified. Sections reveal yellow adipose cut surfaces mixed with scant fibrous areas. No mass lesion is identified. Capital Campaign Fundraiser sections are submitted in six cassettes. Cassette 1 contains the skin piece. Sections are submitted after additional fixation. / SJ:darrick 10/11/2023 TC:5 CPT: 48564 x2
[2023-10-08] MEDS: Gentamicin 80 MG/2 ML Vial (08:29)
[2023-10-08] MEDS: Methylene Blue 1% 100 MG/10 ML VIAL (08:29)
[2023-10-08] MEDS: Bupivacaine 0.25% 30 ML Vial (12:48)
--- NOTE | 2023-10-08 13:07 | DCINST_ITS ---
Discharge Instructions Dressing / Incision Additional Dressing/Incision Instructions:: Follow the instructions given in the office. Keep your back elevated in a recliner position. Take the antibiotic 2 x a day until finished. Leave the dressings in place until seen in the office. Follow Up Care Please Follow Up With: Telma Hoffmann MD When: in 1 week Test Results: Test results from this visit will be discussed in further detail at your follow- up appointment, if applicable. Discharge Plan Admission Attending Provider: Telma Hoffmann Primary Care Provider: Kaya Pinto Discharge Orders/Prescriptions Prescriptions: No Action topiramate [Topamax] 100 mg tablet 50 mg PO DAILY rabeprazole [AcipHex] 20 mg tablet,delayed release (DR/EC) 20 mg PO DAILY cephalexin 500 mg capsule 500 mg PO BID Qty: 14 0RF lorazepam 0.5 MG tablet 0.5 mg PO QHS PRN PRN (Reason: Anxiety) epinephrine 0.3 MG syringe 0.3 mg IM X1 ibuprofen 400 MG tablet 800 mg PO Q8H PRN PRN (Reason: Pain Or Fever) Qty: 20 0RF vilazodone [Viibryd] 20 mg Tablet 20 mg PO DAILY Referrals / Follow Up: Kaya Pinto DO [Primary Care Provider] - Disposition Disposition (needs filled in before D/C Order can be placed): Home, Self Care
--- NOTE | 2023-10-08 13:09 | PCM.OPRPT ---
Problems Associated Problem List Diagnoses (1) Macromastia: (2) Chronic neck pain: (3) Chronic back pain: Report of Operation Date of Procedure: 10/08/23 Pre-Operative Diagnosis: Bilateral macromastia; chronic neck and back pain Post-Operative Diagnosis: Same Surgery/Procedure Performed:: Bilateral breast reduction (right?316 g; left?318 g) Surgeon: Telma Hoffmann wood casket assembler: MARIE CHURCHattending ambulatory care Type of Anesthesia: General Specimen's removed: Breast tissue Drains: None Estimated Blood Loss (mL): 50 cc Description of Procedure: Procedure of bilateral breast reduction had been reviewed with the patient. Informed consent was obtained. The expected pre-, intra-, postoperative course was reviewed. Potential risk and complications were reviewed which include but are not exclusive of bleeding, infection, pain, numbness, asymmetry, skin necrosis, the need for further surgery, DVT, and even . She is marked in the preop holding area prior to surgery. No guarantees as to the final size were made. Patient was brought to the operating room and placed under general anesthesia in the supine position. The breast and chest are prepped and draped in the usual sterile fashion. Care is taken to ensure a warming blanket, sequential compression stockings, and a Rossi catheter are in place. Additionally, all pressure points were padded. The incisions were then made along the premarked incision lines. The pedicle is then de-epithelialized. Following this, the medial and lateral inferior aspects of the breast were removed using argon coagulation. The pedicle was then from the upper flap with the upper flap dissection continuing cephalad ensuring at least 2 cm in thickness. The pedicle is then trimmed in order to allow it to comfortably fit beneath the upper flap. The wound is irrigated with antibiotic solution and checked for hemostasis which is controlled with cautery. All removed tissue was weighed and passed off the operative field to be sent to pathology. The breast is then infolded and tacked together using silk suture and skin clips. With a satisfactory size and shape identified, the incisions are closed. Vicryl sutures are placed in a [id number] fashion in the deep subcutaneous tissue. The incisions then closed in 3 layers using a 3-0 STRATAFIX suture. Approximately 4 cm above the inframammary crease, the nipple areola is brought out through an opening. This is then tacked in place with nylon sutures. All skin edges were then approximated with a running subcuticular suture using strata fix. The vertical aspect is closed in 2 layers. The identical procedure was performed on the opposite side. At the conclusion, 1/4% plain Marcaine is injected along the incisions. Xeroform is placed along the incisions along with fluff gauze. She is then placed in a surgery bra. She tolerated the procedure well was taken to the recovery area in an awake and stable condition. Needle and sponge counts are correct. Complications None Admit VTE Documentation VTE Mechan Device Prophylaxis: SCD's
== END 2023-10-08 16:16 | disposition home or self-care (01) ==
LOC: SDC 05:59 → AC 06:00
PROVIDERS: PCP Internal Medicine; Referring Provider Plastic Surgery; Visit Provider Plastic Surgery
PROC: 0H0U0ZZ Alteration of Left Breast, Open Approach (ICD-10-PCS; CPT 19318; principal; 2023-10-08 07:15)
DX: M54.2 Cervicalgia (principal); N62 Hypertrophy of breast; G89.29 Other chronic pain; F32.A Depression, unspecified; K21.9 Gastro-esophageal reflux disease without esophagitis; Z79.899 Other long term (current) drug therapy; Z86.711 Personal history of pulmonary embolism; Z87.891 Personal history of nicotine dependence; M99.01 Segmental and somatic dysfunction of cervical region; M99.02 Segmental and somatic dysfunction of thoracic region; M99.03 Segmental and somatic dysfunction of lumbar region; M99.05 Segmental and somatic dysfunction of pelvic region
CPT/HCPCS: 19318; 00402; 88305; J7120; J2405

== ENCOUNTER → 2024-04-11 | Outpatient (CLI) | payer OTHER, SELFPAY ==
--- NOTE | 2024-04-11 09:02 | EKG12_ITS ---
Test Reason : OBESITY Blood Pressure : / mmHG Vent. Rate : 059 BPM Atrial Rate : 059 BPM P-R Int : 134 ms QRS Dur : 092 ms QT Int : 416 ms P-R-T Axes : 050 062 038 degrees QTc Int : 411 ms Sinus bradycardia Otherwise normal ECG Confirmed by BELTRAN BATES, DANO ([id number]), features editor YAKELIN DE LA GARZA ([id number]) on 04/12/2024 9:43:27 AM Referred By: Chacha Arauz Confirmed By:DANO GONG MD
[2024-04-11 10:03] LABS: Absolute Lymphocyte Count 1.46 X10^3/uL (0.83-4.51); Basophil# 0.07 X10^3/uL; Basophil% 1.1 % (0-1); Eosinophil# 0.26 X10^3/uL; Hematocrit 45.8 % (37-47); Hemoglobin 14.5 g/dL (12.0-15.0); Lymphocyte # 1.46 X10^3/ul (0.83-4.51); Lymphocyte % 22.7 % (19-41); Mean Corp Hgb Conc 31.7 g/dL (32-36); Mean Corpuscular Hgb 29.5 pg (27.0-32.0); Mean Corpuscular Volume 93.3 fL (81-99); Mean Platelet Vol. 11.7 fl (6.2-12.0); Monocyte# 0.57 X10^3/uL; Monocyte% 8.9 % (0-10); NRBC Flagged by Analyzer 0 % (0-5); Neutrophil # 4.04 X10^3/uL (2.7-7.7); Platelet Count 172 K/mm3 (150-450); RBC Distribution Width CV 11.9 % (11.6-14.6); Red Blood Count 4.91 M/mm3 (4.2-5.4); White Blood Count 6.4 K/mm3 (4.4-11.0)
[2024-04-11 10:33] LABS: Vitamin D,25 Hydroxy 27.1 ng/mL
[2024-04-11 11:10] LABS: AST(SGOT) 21 U/L (15-37); Alanine Aminotransfer ALT/SGPT 27 U/L (13-56); Albumin, Serum 3.4 g/dL (3.2-5.0); Alkaline Phosphatase 103 U/L (45-117); Anion Gap 9 (5-15); BUN 13 mg/dL (7-18); Calcium,Total 9.2 mg/dL (8.5-10.1); Chloride 108 mmol/L (98-107); Cholesterol 196 mg/dL (200); Creatinine, Serum 0.72 mg/dL (0.55-1.02); EST Glomerular Filtration Rate 89 mL/min (>60); Est Glom Filt Rate - Afr Amer 107 mL/min (>60); Globulin 3.4 g/dL (2.2-4.2); Glucose 100 mg/dL (74-106); High Density Lipoprotein 56 mg/dL; Potassium 3.6 mmol/L (3.5-5.1); Protein, Total 6.8 g/dL (6.4-8.2); Sodium Level 142 mmol/L (136-145); Thyroid Stim Hormone (TSH) 2.65 uIU/mL (0.358-3.74); Triglycerides 88 mg/dL; Very Low Density Lipoprotein 18 mg/dL (5-40)
[2024-04-11 13:38] LABS: Hemoglobin A1c 5.2 % (3.8-5.6)
== END | disposition home or self-care (01) ==
PROVIDERS: PCP Internal Medicine; Referring Provider Obstetrics & Gynecology; Visit Provider Obstetrics & Gynecology
DX: E66.8 Other obesity (principal)
CPT/HCPCS: 36415; 80053; 80061; 82306; 83036; 84443; 85025; 93005

== ENCOUNTER → 2024-05-11 | Outpatient (CLI) | payer OTHER, SELFPAY ==
--- NOTE | 2024-05-11 12:21 | BI_ITS ---
MAMMOGRAPHY - BILATERAL SCREENING REASON FOR EXAM: Female, 53 years old. Routine annual screening examination. PERTINENT HISTORY: Non-contributory. TECHNIQUE: Digital bilateral breast maribell (3D mammographic acquisition) in the CC and MLO projections. 2-D mediolateral oblique (MLO) and craniocaudad (CC) views of both breasts were obtained. CAD: Full Field Digital Mammography with Computer Added Detection was performed. COMPARISON: Comparison is made with prior study dated May 05, 2023 and October 07, 2021. FINDINGS: Breast Composition: There are scattered areas of fibroglandular density. There are no dominant masses or suspicious calcifications. Stable small benign-appearing bilateral axillary lymph nodes. No other significant abnormalities are identified. There has been no significant change since the prior study. BI/SCRN MAMM (CAD)W/MARIBELL BILAT IMPRESSION: Stable bilateral screening mammogram. Yearly follow-up mammogram recommended. (A) ASSESSMENT CATEGORY: BIRADS Category 2: Benign. A letter regarding these results will be sent to the patient by the facility within 30 days. Approximately 10% of breast cancers are not detected by mammography. A normal mammogram should not delay biopsy of a clinically suspicious abnormality. [id number] Electronically Signed: Jose Juan Cartwright MD at 14:51 EDT ,
== END | disposition home or self-care (01) ==
LOC: OPBI 12:21
PROVIDERS: PCP Internal Medicine; Referring Provider Obstetrics & Gynecology; Visit Provider Obstetrics & Gynecology
DX: Z12.31 Encounter for screening mammogram for malignant neoplasm of breast (principal)
CPT/HCPCS: 77063; 77067

== ENCOUNTER → 2024-06-15 | Outpatient (CLI) | payer OTHER, SELFPAY ==
[2024-06-15 12:03] LABS: Mucous, Urine 0 SEEN /hpf (<or=2+)
[2024-06-15 12:42] LABS: Color, Urine SEE COMMENT BELOW (Yellow); Glucose, Dipstick Normal (Normal); Ketone-Dipstick Negative (Negative); Leukocyte Esterase-Dipstick 500 /ul (Negative); Nitrite-Dipstick Positive (Negative); Occult Blood-Urine 250 /ul (Negative); Protein-Dipstick 100 mg/dl (Negative); Specific Gravity, Urine 1.015 (1.002-1.030); Urine Bilirubin Dipstick 6 mg/dL (Negative); Urine Clarity Cloudy (Clear); Urine Urobilinogen 8 mg/dl (Normal); Urine pH 6.5 (5.0 - 8.0)
[2024-06-15 12:53] LABS: Bacteria 2+ /hpf (None Seen); Red Blood Cells-Urine 5-10 SEEN /hpf (0-5); Squamous Epithelial Cells - UA 0-5 SEEN /hpf (5-10); White Blood Cells 50-100 SEEN /hpf (0-5)
== END | disposition home or self-care (01) ==
LOC: LABSPEC 11:50
PROVIDERS: PCP Internal Medicine; Referring Provider Physician Assistant Surgical; Visit Provider Physician Assistant Surgical
DX: R30.0 Dysuria (principal); N39.0 Urinary tract infection, site not specified
CPT/HCPCS: 81001; 87077; 87086; 87088; 87186

== ENCOUNTER → 2025-01-23 | Outpatient (CLI) | payer OTHER, SELFPAY ==
--- NOTE | 2025-01-23 12:59 | RAD_ITS ---
PROCEDURE: CHEST PA AND LATERAL 01/23/2025 REASON FOR EXAM: COUGH TECHNIQUE: Frontal and lateral views of the chest. COMPARISON: Comparison is made with prior study dated January 30, 2020. FINDINGS: Hardware: None Heart: The heart size is normal. Mediastinum: The mediastinal contour is unremarkable. Lungs: The lungs are clear. Bones: The bones are unremarkable. RAD/Chest PA and Lateral IMPRESSION: NO ACUTE FINDINGS. Reading Location: [id number]
== END | disposition home or self-care (01) ==
LOC: MTRAD 12:58
PROVIDERS: PCP Internal Medicine; Referring Provider Physician Assistant; Visit Provider Physician Assistant
DX: R05.9 Cough, unspecified (principal)
CPT/HCPCS: 71046

== ENCOUNTER → 2025-06-28 | Outpatient (CLI) | payer OTHER, SELFPAY ==
--- NOTE | 2025-06-28 10:45 | BI_ITS ---
EXAM: SCRN MAMM (CAD)W/MARIBELL BILAT DATE: 06/28/2025 CLINICAL HISTORY: F, Age 54 y/o , SCREENING No family history. TECHNIQUE: Procedure Code: [id number] Modality: MG Procedure: SCRN MAMM (CAD)W/MARIBELL BILAT COMPARISON: Prior exam(s) dated May 11, 2024.. FINDINGS: TISSUE DENSITY: There are scattered areas of fibroglandular density. Bilateral Breast Mammographic Findings: No significant masses, calcifications or other abnormalities are identified. There are 2, adjacent 4 mm benign-appearing nodules in the central aspect of the right breast. These may represent tiny lymph nodes. Correlation with ultrasound recommended. No suspicious masses, areas of developing architectural distortion, or suspicious calcifications. There has been no significant interval change. BI/SCRN MAMM (CAD)W/MARIBELL BILAT IMPRESSION: 2 adjacent benign-appearing nodules in the central aspect of the right breast a s described. Correlation with ultrasound recommended. OVERALL FINAL ASSESSMENT BI-RADS 0: INCOMPLETE - NEED ADDITIONAL IMAGING EVALUATION. RECOMMENDATION: Ultrasound Recommended A letter with findings and recommendations will be mailed to the patient. Reading Location: [id number]
== END | disposition home or self-care (01) ==
LOC: OPBI 10:44
PROVIDERS: PCP Internal Medicine; Referring Provider Internal Medicine; Visit Provider Internal Medicine
DX: Z12.31 Encounter for screening mammogram for malignant neoplasm of breast (principal)
CPT/HCPCS: 77063; 77067

== ENCOUNTER → 2025-07-04 | Outpatient (CLI) | payer OTHER, SELFPAY ==
--- NOTE | 2025-07-04 12:36 | US_ITS ---
PROCEDURE: BREAST LIMITED UNILATERAL 07/04/2025 REASON FOR EXAM: F, Age 54 y/o , NODULE COMPARISON: Prior mammogram dated June 28, 2025. TECHNIQUE: Procedure Code: USBRSTLIMIT Modality: US Procedure: BREAST LIMITED UNILATERAL. The lateral aspect of the right breast was examined with ultrasound. FINDINGS: There is a 5 mm x 6 mm x 3 mm well-defined hypoechoic nodule with a central fatty hilum suggestive of lymph node at the 7 o'clock position of the breast at 5 cm from the nipple. There is also evidence of a 5 mm x 6 mm x 4 mm hypoechoic nodule at the 10 o'clock position of the breast at 2 cm from the nipple. This is not a typical lymph node. Biopsy recommended. US/Breast Limited Unilateral IMPRESSION: 5 mm x 6 mm x 4 mm hypoechoic solid nodule at the 10 o'clock position of the br east at 2 cm from the nipple. This is not a typical lymph node. Biopsy recommended. BI-RADS 4: SUSPICIOUS RECOMMENDATION: Biopsy Recommended Reading Location: [id number]
== END | disposition home or self-care (01) ==
LOC: OPUS 12:35
PROVIDERS: PCP Internal Medicine; Referring Provider Internal Medicine; Visit Provider Internal Medicine
DX: N63.10 Unspecified lump in the right breast, unspecified quadrant (principal)
CPT/HCPCS: 76642

== ENCOUNTER → 2025-07-18 | Outpatient (CLI) | payer OTHER, SELFPAY ==
--- NOTE | 2025-07-18 | BRBX_PTH ---
PATIENT: KARTHIKEYAN BECKFORD LOC: [facility] U#:[id number] AGE/SX: 54/F ROOM: RE07/18/[address]: Dr. Ayah Frey MD : 1970 BED: DIS: 07/18/2025 SPEC #: [id number] RECD: 07/18/25 14:13 STATUS: AGAPITO REQ #: [id number] TAMIE: 07/18/25 00:[address]: Ayah Frey DEPT: SURGICAL PATHOLOGY RECD BY: Car Colby ENTERED: 07/18/25 14:43 SP TYPE: BREAST BX JEWELL DR: Dr. Kaya Pinto, DO Tissues: A - Right breast, NOS Procedures: Surgery Specimen Level V HEADER OPERATION: Right breast biopsy PRE-OP DIAGNOSIS: Right breast mass TISSUE SUBMITTED: A- Right breast mass - 10o'clock, 2cm from nipple MICROSCOPIC DIAGNOSIS A. Breast, right, mass at 10 o'clock 2 CMFN, core biopsy: * Mature adipose with scant fibrous tissue, containing a few foamy histiocytes suggestive of fat necrosis. * No evidence of malignancy is seen in these sections. MICROSCOPIC DESCRIPTION Slides are reviewed. GROSS DESCRIPTION A. Received in formalin labeled with the patient's name and date of is a 2.0 x 1.2 x 0.2 cm aggregate of verdugo-yellow fatty, fragmented tissue cores. Entirely submitted in 1 cassette. Cold ischemic time: <1-minuteFormalin fixation time: 29 hours, 35 minutes Note: No collection time provided on specimen requisition; the above times are calculated using the time 1355 that is handwritten on the bottle but may not reflect true collection time. (DE) DE 07/18/2025 CPT:57272
--- NOTE | 2025-07-18 | BRBX_PTH ---
PATIENT: KARTHIKEYAN BECKFORD LOC: [facility] U#:[id number] AGE/SX: 54/F ROOM: RE07/18/[address]: Dr. Ayah Frey MD : 1970 BED: DIS: 07/18/2025 SPEC #: [id number] RECD: 07/18/25 14:13 STATUS: AGAPITO REQ #: [id number] TAMIE: 07/18/25 00:[address]: Ayah Frey DEPT: SURGICAL PATHOLOGY RECD BY: Car Colby ENTERED: 07/18/25 14:43 SP TYPE: BREAST BX JEWELL DR: Dr. Kaya Pinto, DO Tissues: A - Right breast, NOS Procedures: Surgery Specimen Level V HEADER OPERATION: Right breast biopsy PRE-OP DIAGNOSIS: Right breast mass TISSUE SUBMITTED: A- Right breast mass - 10o'clock, 2cm from nipple MICROSCOPIC DIAGNOSIS A. Breast, right, mass at 10 o'clock 2 CMFN, core biopsy: * Mature adipose with scant fibrous tissue, containing a few foamy histiocytes suggestive of fat necrosis. * No evidence of malignancy is seen in these sections. MICROSCOPIC DESCRIPTION Slides are reviewed. GROSS DESCRIPTION A. Received in formalin labeled with the patient's name and date of is a 2.0 x 1.2 x 0.2 cm aggregate of verdugo-yellow fatty, fragmented tissue cores. Entirely submitted in 1 cassette. Cold ischemic time: <1-minuteFormalin fixation time: 29 hours, 35 minutes Note: No collection time provided on specimen requisition; the above times are calculated using the time 1355 that is handwritten on the bottle but may not reflect true collection time. (OK) OK 07/18/2025 CPT:20723
--- NOTE | 2025-07-18 13:34 | US_ITS ---
PROCEDURE: US BREAST BIOPSY 1ST LESION 07/18/2025 REASON FOR EXAM: F, Age 54 y/o , ABNORMAL BREAST ULTRASOUND TECHNIQUE: Procedure Code: [id number] Modality: US Procedure: US BREAST BIOPSY 1ST LESION. Under direct sonographic guidance, the surgeon performed core biopsies of the 5 mm x 3 mm x 5 mm solid nodule at the 10 o'clock position of the breast at 2 cm from the nipple. COMPARISON: Prior exam(s) dating back to July 04, 2025.. FINDINGS: MAMMOGRAM: TISSUE DENSITY: There are scattered areas of fibroglandular density. ULTRASOUND: Ultrasound was targeted to the 10 o'clock position of the left breast. US/US Breast Biopsy 1st Lesion IMPRESSION: Successful ultrasound-guided core biopsy of the 5 mm x 3 mm x 5 mm nodule at th e 10 o'clock position of the breast at 2 cm from the nipple. OVERALL FINAL ASSESSMENT: BIRADS 11 WAITING PATHOLOGY RECOMMENDATION: Routine annual follow-up in 1 Year Reading Location: [facility]
--- NOTE | 2025-07-18 13:34 | US_ITS ---
PROCEDURE: US BREAST BIOPSY 1ST LESION 07/18/2025 REASON FOR EXAM: F, Age 54 y/o , ABNORMAL BREAST ULTRASOUND TECHNIQUE: Procedure Code: [id number] Modality: US Procedure: US BREAST BIOPSY 1ST LESION. Under direct sonographic guidance, the surgeon performed core biopsies of the 5 mm x 3 mm x 5 mm solid nodule at the 10 o'clock position of the breast at 2 cm from the nipple. COMPARISON: Prior exam(s) dating back to July 04, 2025.. FINDINGS: MAMMOGRAM: TISSUE DENSITY: There are scattered areas of fibroglandular density. ULTRASOUND: Ultrasound was targeted to the 10 o'clock position of the left breast. US/US Breast Biopsy 1st Lesion IMPRESSION: Successful ultrasound-guided core biopsy of the 5 mm x 3 mm x 5 mm nodule at th e 10 o'clock position of the breast at 2 cm from the nipple. OVERALL FINAL ASSESSMENT: BIRADS 11 WAITING PATHOLOGY RECOMMENDATION: Routine annual follow-up in 1 Year Reading Location: [facility]
--- NOTE | 2025-07-18 14:03 | OP.PCM_ITS ---
Operative Report (Standard) Operative Information Date of Procedure: 07/18/25 Pre-Operative Diagnosis: Right breast mass Post-Operative Diagnosis: Same Surgery/Procedure Performed: Ultrasound-guided right breast biopsy certified indoor environmentalist: No Type of Anesthesia: Local Procedure Start Time: 13:45 Procedure Stop Time: 13:55 Select all DRAINS/GRAFTS/IMPLANTS that apply: Implanted device Implanted device details: Bard dual ultraclip Estimated Blood Loss: < 5 cc Specimen collected: Yes Description of specimen(s) removed: Right breast mass 10:00 2 cm from nipple Description of surgery: Procedure: Right ultrasound-guided core biopsy Indications: 54year-old female with hypoechoic nodule at 10:00 2 cm from the nipple in the right breast. Risk benefits were discussed the patient and she elected to proceed with ultrasound guided core biopsy with clip placement Description of procedure: Patient was brought into the ultrasound room in the right breast was marked. A timeout was completed verifying correct patient, procedure, site, specially, prior to beginning procedure. The right breast was prepped and draped in usual sterile fashion and using local anesthesia was obtained with 1% lidocaine with epi. The lesion was located with the ultraso und. Small incision was made with 11 blade to introduced the mammotome through the skin. Under ultrasound guidance multiple core samples were obtained using then 13-gauge mammotome and sent in formalin for pathology?lesion appeared to be completely removed. The Bard dual ultra-clip was then deployed into the biopsy cavity under ultrasound guidance and a picture was taken. Upon completion proce dure hemostasis was obtained and a Steri-Strip and OpSite were placed. Patient was then taken to the mammography suite for clip verification. The clip was verified. The patient tolerated the procedure well and was discharged from the breast imaging department good condition. Surgical Findings: See operative report Complications Complications: No
== END | disposition home or self-care (01) ==
LOC: OPUS 13:33
PROVIDERS: PCP Internal Medicine; Referring Provider Surgery; Visit Provider Surgery
DX: R92.8 Other abnormal and inconclusive findings on diagnostic imaging of breast (principal)
CPT/HCPCS: 19083; 88307